=== PATIENT | male | born 1990 | race Two or more races ===

== ENCOUNTER 2024-08-16 10:18 | Emergency (ER) | payer SELFPAY ==
[2024-08-16 10:49] VITALS: BP 111/74; PULSE 64; RESP 18; TEMP 36.3; O2SAT 100; BMI 34.6
--- NOTE | 2024-08-16 11:08 | XR_ITS ---
Examination: PA lateral chest 2 views Technique: Upright PA lateral chest 2 views Exam date and time: August 16, 2024 1111 hrs. Indications: Shortness of breath chest pain beginning today. Findings: Mild prominence left ventricle No pneumonia or pulmonary edema There is mild prominence of the central pulmonary vasculature Impression: Mild prominent central pulmonary vasculature
--- NOTE | 2024-08-16 11:09 | PD.EDRME ---
Rapid Medical Screening Exam [facility] Arrival date/time: 08/16/24 10:18 33-year-old male with a history of childhood asthma reports with complaints of sudden onset of shortness of breath and chest pain on inspiration for 1 day Chief Complaint: Chest Pain Time Seen by Provider: 08/16/24 10:42 Vital signs: Vital Signs Temperature 97.4 F 08/16/24 10:49 Pulse Rate 64 08/16/24 10:49 Respiratory Rate 18 08/16/24 10:49 Blood Pressure 111/74 08/16/24 10:49 Pulse Oximetry (%) 100 08/16/24 10:49 Oxygen Delivery Method Room Air 08/16/24 10:49
[2024-08-16 11:27] VITALS: PULSE 63; RESP 18; O2SAT 99
[2024-08-16] MEDS: ALBUTEROL/IPRATROPIUM (Duoneb) RT SOL 3 ML NEBU INH (11:27)
--- NOTE | 2024-08-16 12:33 | PD.EDCHEST ---
ED Chest Pain RME/HPI General Chief Complaint: Chest Pain Stated Complaint: CHEST PAIN WITH COUGH Time Seen by Provider: 08/16/24 10:42 Arrival date/time: 08/16/24 10:18 33-year-old male with a previous history of childhood asthma reports with complaints of shortness of breath and chest pain that began earlier today. Patient reports the pain is with inhalation and coughing only. Patient states that he has had some sort of virus over the last few days but has not been taking any medications. He denies nausea or vomiting headaches or dizziness fevers or chills. Patient states that he has felt warm and has been a little diaphoretic over the last 2 days. Patient states that he has not had an asthma attack IN more than 15 years Limitations: no limitations Related Data Previous Rx's ?Medication ?Instructions ?Recorded albuterol sulfate 90 mcg/actuation 2 inh inhalation Q4H PRN shortness 08/16/24 aerosol inhaler of breath or wheezing #8.5 grams prednisone 20 mg tablet 60 mg PO QDAY 4 days #12 tabs 08/16/24 Allergies Allergy/AdvReac Type Severity Reaction Status Date / Time No Known Allergies Allergy Verified 08/16/24 10:19 Review of Systems Constitutional Constitutional: Denies chills and Denies fever(s) ENT Ears, Nose, Mouth, and Throat: Denies dizziness, Denies tongue swelling and Denies vertigo Cardiovascular Cardiovascular: Reports dyspnea and Denies irregular heart rhythm Respiratory Respiratory: Reports dyspnea, Reports pain on inspiration and Reports pain with cough Gastrointestinal Gastrointestinal: Denies nausea and Denies vomiting Musculoskeletal Musculoskeletal: Denies back pain and Denies deformity Neurologic Neurologic: Denies dizziness and Denies vertigo Hematologic/Lymphatic Hematologic/Lymphatic: Denies easy bleeding and Denies easy bruising Allergic/Immunologic Allergic/Immunologic: Denies tongue swelling Past Medical History Social History SMOKING STATUS: Never smoker ED Exam General Limitations: Present no limitations General appearance: Present alert and in no apparent distress Head Head exam: Present atraumatic Eye Eye exam: Present normal appearance, PERRL and EOMI ENT ENT exam: Present normal exam, normal oropharynx and mucous membranes moist Neck Neck exam: Present normal inspection, full ROM and trachea midline Chest Chest inspection: Present normal inspection and symmetric chest wall rise Respiratory Respiratory exam: Present normal lung sounds bilaterally; Absent respiratory distress or wheezes Cardiovascular Cardiovascular exam: Present regular rate, normal rhythm and normal heart sounds Abdominal Exam Abdominal exam: Present soft and normal bowel sounds Extremities Exam Extremities exam: Present normal inspection and full ROM Back Exam Back exam: Present normal inspection and full ROM Neurological Exam Neurological exam: Present alert, oriented X3 and CN II-XII intact Psychiatric Psychiatric exam: Present normal affect and normal mood Skin Skin exam: Present warm, intact, normal color and diaphoresis (MILD) Course Course Course Narrative: 33-year-old male who reports history of childhood asthma reports with complaints of shortness of breath cough and congestion. Chest x-ray is without infiltrates or opacities flu and COVID test are negative EKG with normal sinus rhythm no STEMI or ischemic changes are noted. Patient was given a DuoNeb reassessment the patient he states that he is feeling better he is able to take deep breaths and the chest pain has somewhat resolved. Patient is also no longer diaphoretic. Differential diagnosis includes asthma exacerbation versus COVID versus influenza versus other viral infections. Patient is currently stable nontoxic-appearing with stable vital signs he will be discharged home treated for asthma and advised to follow-up with his primary care provider in 48 hours. Quality Measures none Orders Category Date Time Status Bedside COVID-19 Antigen Test NOW Care 08/16/24 11:52 Active Bedside Influenza A&B Antigen Test NOW Care 08/16/24 11:53 Completed EKG (ED ONLY) *Do not use* NOW Care 08/16/24 11:52 Active EKG (ED Only) Stat Exams 08/16/24 11:52 Ordered XR chest 2V Stat Exams 08/16/24 11:08 Taken Albuterol/Ipratr Rt Dipika [Duoneb Rt Dipika] Med 08/16/24 11:08 Discontinued 3 ml INH X1 ONE Vital Signs Vital signs: Vital Signs Temperature 97.4 F 08/16/24 10:49 Pulse Rate 64 08/16/24 10:49 Respiratory Rate 18 08/16/24 10:49 Blood Pressure 111/74 08/16/24 10:49 Pulse Oximetry (%) 100 08/16/24 10:49 Oxygen Delivery Method Room Air 08/16/24 10:49 Procedures -ED EKG Interpretation #1: EKG Impression: Normal sinus rhythm, No acute ST-T changes and No ischemic changes Chest Pain Patient data External records reviewed:: None Clinical information provided by:: patient Social determinants that could affect healthcare access:: none Patient has the following chronic illnesses:: none How is presenting disease/condition affected by chronic disease/condition?: no chronic disease Evaluation data The following diagnostics were reviewed and interpreted by me:: lab results and radiology exam(s) Lab and/or radiology exams considered but not ordered:: N/A Interpretation Summary: Negative for COVID and flu, chest x-ray negative for evidence of pneumonia Medications / Prescriptions Medications or Prescriptions considered but not ordered:: n/a Medication administrations:: Medication Administration History Discontinued Medications Albuterol/Ipratropium (Albuterol/Ipratropium (Duoneb) Rt Dipika 3 Ml Nebu) 3 ml INH X1 ONE Stop: 08/16/24 11:09 Last Admin: 08/16/24 11:27 Dose: 3 ml Documented By: MURIEL as above Consultations Consultation(s) initiated? (list below): No Diagnosis Most likely diagnosis given after review of the tests above:: Lower respiratory infection Admission Indicated Admission indicated?: not indicated Admission Request Was there a request for admission?: No Disposition Plan Disposition Plan: Discharge Discharge Attestation Discharge Attestation: The patient and all family members were given an opportunity to ask questions and understood the discharge instructions. Discharge instructions specifically effects, indications for sooner follow up or return to the emergency department, and the expected course of current diagnosis. Patient condition: Stable Discharge Plan Plan Patient Disposition: HOME (Self Care) Prescriptions/Referrals Prescriptions/Med Rec: New prednisone 20 mg tablet 60 mg PO QDAY 4 Days Qty: 12 0RF Taper: Prednisone Taper 20 mg DAILY for 2 Days and 0 Hour 10 mg DAILY for 2 Days and 0 Hour 5 mg DAILY for 7 Days and 0 Hour albuterol sulfate 90 mcg/actuation HFA aerosol inhaler 2 inh inhalation Q4H PRN (Reason: shortness of breath or wheezing) Qty: 8.5 0RF Rx Instructions: until breathing returns to target peak flow/parameters Referrals: No Primary/Family,Physician [Primary Care Provider] - In 1 week Problem List Clinical Impression: Lower respiratory tract infection Patient/Caregiver Discharge Instructions Discharge Activity: activity as tolerated Additional Instructions: Take medications as directed hydrate well follow with your primary care provider in 48 hours. Return to emergency department if symptoms should worsen Print Language: Maldivian Stand Alone Forms: Joyce Award Info., Patient Portal Info Letter
[2024-08-16 12:50] VITALS: BP 119/81; PULSE 71; RESP 18; TEMP 36.8; O2SAT 98
== END 2024-08-16 12:50 | disposition home or self-care (01) ==
PROVIDERS: Emergency Provider Emergency Medicine
DX: J22 Unspecified acute lower respiratory infection (principal)
CPT/HCPCS: 71046; 87400; 87811; 93005; 94640; 99283; A9270

== ENCOUNTER 2025-08-20 20:13 | Inpatient (IN) | payer MEDICAID, SELFPAY ==
[2025-08-20] VITALS (8 sets, daily range): BP systolic 128–155; BP diastolic 84–104; PULSE 97–120; RESP 16–30; TEMP 35.9–36.4; O2SAT 100
--- NOTE | 2025-08-20 20:15 | PD.EDSOB ---
ED SOB =RME/HPI General Chief Complaint: Shortness of Breath/Dyspnea Stated Complaint: SOB Time Seen by Provider: 08/20/25 20:19 Arrival date/time: 08/20/25 20:13 RME / HPI RME / HPI Narrative: See MDM for Dr. Carter's HPI Documentation. Related Data Previous Rx's ?Medication ?Instructions ?Recorded albuterol sulfate 90 mcg/actuation 2 inh inhalation Q4H PRN shortness 08/16/24 aerosol inhaler of breath or wheezing #8.5 grams Allergies Allergy/AdvReac Type Severity Reaction Status Date / Time No Known Allergies Allergy Verified 08/16/24 10:19 Review of Systems Review of Systems Systems Reviewed: All systems reviewed, normal except as documented Past Medical History Past Medical History CARDIAC: Positive Congestive Heart Failure Social History SMOKING STATUS: Never smoker ED Exam Narrative Physical exam: See [facility] for Dr. Carter's Physical Exam Documentation. Course Quality Measures none Orders Category Date Time Status Admit to Inpatient Status Routine Admission 08/21/25 04:48 Active Patient Condition Routine Admission 08/21/25 04:48 Ordered Bedside COVID-19 Antigen Test NOW Care 08/20/25 20:18 Active Bedside Influenza A&B Antigen Test NOW Care 08/20/25 20:18 Completed COVID-19 Screening Questionnaire NOW Care 08/21/25 01:[address] Screening NOW Care 08/20/25 21:22 Active EKG (ED ONLY) *Do not use* NOW Care 08/20/25 20:18 Completed NPO NOW Care 08/21/25 04:49 Active Notify provider NEEDED Care 08/21/25 04:48 Active Saline [Insert IV] NOW Care 08/20/25 20:18 Active Referral Respiratory Therapy Stat Cons 08/20/25 20:[address] abdomen pelvis w con Stat Exams 08/21/25 01:[address] angio chest Stat Exams 08/20/25 21:22 Completed EKG (ED Only) Stat Exams 08/20/25 20:18 Ordered US gall bladder Stat Exams 08/21/25 01:22 Completed US thoracentesis Stat Exams 08/21/25 04:47 Ordered US venous doppler LE BI Stat Exams 08/21/25 01:22 Completed XR chest 1V portable Stat Exams 08/20/25 20:18 Completed ABG [Arterial Blood Gas] Stat Lab 08/20/25 20:24 Completed Alcohol, Blood Medical Stat Lab 08/20/25 20:23 Completed BNP [B-Type Natriuretic Peptide] Stat Lab 08/20/25 20:23 Completed Bilirubin,Direct Stat Lab 08/20/25 20:23 Completed Blood Culture (Lab) Stat Lab 08/20/25 20:23 Results Body Fld Cult w Sarah & Gram St Routine Lab 08/21/25 04:53 Ordered CBC AM DRAW Lab 08/21/25 05:06 Completed CBC AM DRAW Lab 08/22/25 05:00 Ordered CBC AM DRAW Lab 08/23/25 05:00 Ordered CBC Stat Lab 08/20/25 20:23 Completed CK [Creatine Kinase] Stat Lab 08/20/25 20:23 Completed CMP [Comprehensive Metabolic Panel] Stat Lab 08/20/25 20:23 Completed CRP [C-Reactive Protein] Stat Lab 08/20/25 20:23 Completed Comprehensive Metabolic Panel AM DRAW Lab 08/21/25 05:06 Completed Comprehensive Metabolic Panel AM DRAW Lab 08/22/25 05:00 Ordered Comprehensive Metabolic Panel AM DRAW Lab 08/23/25 05:00 Ordered D-Dimer Stat Lab 08/20/25 20:23 Completed Drug Screen,Urine Stat Lab 08/20/25 22:00 Completed ESR [Sed Rate (ESR)] Stat Lab 08/20/25 20:23 Completed Hemoglobin A1C [Glycohemoglobin w (eAG)] Stat Lab 08/20/25 20:23 Completed Lactate (Lactic Acid) Stat Lab 08/20/25 20:23 Completed Lactic Acid, 3 HR Stat Lab 08/20/25 23:52 Completed Lipase Stat Lab 08/20/25 20:23 Completed Magnesium AM DRAW Lab 08/21/25 05:06 Completed Magnesium Stat Lab 08/20/25 20:23 Completed Partial Thromboplastin Time Routine Lab 08/22/25 05:00 Ordered Pleural Fld Cell Count Diff Routine Lab 08/21/25 04:53 Ordered Procalcitonin Stat Lab 08/20/25 20:23 Completed Protein Total,Pleural Fluid Routine Lab 08/21/25 04:53 Ordered Prothrombin Time with INR AM DRAW Lab 08/21/25 05:06 Completed Sputum Culture and Gram Stain Routine Lab 08/21/25 04:51 Ordered TSH [Thyroid Stimulating Hormone] Stat Lab 08/20/25 20:23 Completed Troponin I Stat Lab 08/20/25 20:23 Completed UA, C/S IF [Urinalysis, C/S if Indicated] Stat Lab 08/20/25 22:00 Completed Acetaminophen Tab [Tylenol Tab] Med 08/21/25 04:47 Active 650 mg PO Q6H PRN DiphenhydrAMINE INJ [Benadryl Inj] Med 08/20/25 23:43 Discontinued 50 mg .ROUTE .STK-MED ONE DiphenhydrAMINE INJ [Benadryl Inj] Med 08/21/25 01:25 Discontinued 50 mg IVP X1 ONE DiphenhydrAMINE INJ [Benadryl Inj] Med 08/20/25 23:42 Discontinued 50 mg IVP X1 STA DiphenhydrAMINE INJ [Benadryl Inj] Med 08/21/25 02:31 Discontinued 50 mg IVP X1 STA Enoxaparin [Lovenox] Med 08/21/25 09:00 Active 40 mg SC QDAY Furosemide Inj [Lasix Inj] Med 08/20/25 20:15 Discontinued 80 mg IVP X1 ONE Haloperidol Lactate [Haldol Inj] Med 08/21/25 03:58 Discontinued 5 mg IV X1 ONE LORazepam [Ativan Inj] Med 08/20/25 23:23 Discontinued 1 mg IVP X1 ONE LORazepam [Ativan Inj] Med 08/21/25 02:17 Discontinued 2 mg IVP X1 ONE MethylPREDNISolone.* [SoluMEDROL Inj] Med 08/20/25 23:43 Discontinued 125 mg .ROUTE .STK-MED ONE MethylPREDNISolone.* [SoluMEDROL Inj] Med 08/20/25 23:42 Discontinued 125 mg IVP X1 ONE MethylPREDNISolone.* [SoluMEDROL Inj] Med 08/21/25 01:25 Discontinued 125 mg IVP X1 ONE MethylPREDNISolone.* [SoluMEDROL Inj] Med 08/21/25 02:31 Discontinued 125 mg IVP X1 ONE Metoprolol Tartrate [Lopressor] Med 08/20/25 20:18 Discontinued 50 mg PO X1 ONE Milk Of Magnesia Susp [Mom Susp] Med 08/21/25 04:47 Active 30 ml PO QDAY PRN Morphine* Inj Med 08/21/25 04:47 Active 2 mg IVP Q2H PRN Morphine* Inj Med 08/20/25 20:15 Discontinued 4 mg IV X1 ONE Ondansetron Inj [Zofran Inj] Med 08/21/25 04:47 Active 4 mg IVP Q6H PRN Pantoprazole Inj [Protonix Inj] Med 08/21/25 09:00 Active 40 mg IVP QDAY Sodium Chloride Rt Dipika 10% [NS Rt Dipika 10%] Med 08/21/25 04:47 Discontinued 5 ml INH X1 ONE Code Status Routine Oth 08/21/25 04:47 Ordered BiPAP / CPAP NOW RT 08/20/25 20:15 Active Oxygen Delivery PRN RT 08/21/25 04:49 Active Sputum Induction PRN RT 08/21/25 05:00 Ordered Vital Signs Vital signs: Vital Signs Temperature 96.7 F L 08/20/25 20:20 Pulse Rate 100 08/20/25 20:20 Respiratory Rate 16 08/20/25 20:20 Blood Pressure 155/104 H 08/20/25 20:20 Pulse Oximetry (%) 100 08/20/25 20:20 Oxygen Delivery Method BiPAP 08/20/25 20:20 Shortness of Breath / Dyspnea MDM Narrative MDM Narrative:: This section includes all my notes and documentations, including HPI, PE, and ED course. Del Carter MD HPI: 34 y/o male here with severe shortness of breath. EMS noted hypoxia. He has trouble describing the onset and exacerbating factors or relieving factors and other details. Reports she was discharged from a week earlier this morning. Was admitted for CHF. No other complaints. ROS: All negative except as documented in HPI. Physical Exam: General: Alert and oriented. In severe respiratory distress. Hypoxia noted. High BP noted. Eyes: Conjunctivae and lids clear. ENT: No nasal congestion. Pharynx normal. TM normal bilaterally. Neck: Supple. Heart: Tachycardia with regular rhythm. Lungs: In respiratory distress. Decreased air movement with severe Rales bilaterally. Abdomen: Soft with equivocal tenderness, difficult to localize.. Normal bowel sounds. No distension. No rebound or guarding. Back: No CVA tenderness. Skin: Warm and dry. Neuro: Alert and oriented X 3. I reviewed EMS notes. I reviewed all diagnostic test results: My interpretation of the EKG is: Sinus tachycardia (109 bpm) with nonspecific ST-T changes. My interpretation of the chest x-ray is increased vascular congestion. My review of the Chest CTA report is pulmonary edema and bilateral pleural effusion. My review of the Abdomen/Pelvis CT report is cirrhosis and ascites and anasarca. My review of the bilateral leg venous Doppler US report is no DVT. My review of the gallbladder US report is NAD. Blood/urine tests remarkable for ESR 64, D-dimer 2228, lactic acid 3.4, and BNP 1509. ABG showed pH 7.46, pCO2 41, pHCO3 29. Covid/Influenza: Negative At this point, diagnoses include: Acute respiratory failure with hypoxia Pulmonary edema Bilateral pleural effusion Cirrhosis Ascites Anasarca Treatment here included: BiPAP (before diagnostic tests) Lasix 80 mg IV Lopressor 50 mg PO Morphine 4 mg IV Benadryl 50 mg IV Ativan 1 mg IV and 2 mg IV SoluMedrol 125 mg Haldol 5 mg IV (for severe agitation) No significant improvement noted. I discussed the case with our hospitalist. About the presentation and exam and diagnostics and treatments here. And need of further care in the hospital. Will accept the patient. Dle Carter MD Patient data External records reviewed:: [facility] previous records (Reviewed prior ED records from 08/16/24. Patient was seen for Lower respiratory tract infection.) and EMS form Clinical information provided by:: patient and EMS Social determinants that could affect healthcare access:: none Patient has the following chronic illnesses:: CHF How is presenting disease/condition affected by chronic disease/condition?: exacerbated by Evaluation data The following diagnostics were reviewed and interpreted by me:: EKG tracing(s) (My interpretation of the EKG is: Sinus tachycardia (109 bpm) with nonspecific ST-T changes. Del Carter MD) Lab and/or radiology exams considered but not ordered:: None Interpretation Summary: I reviewed all diagnostic test results: My interpretation of the EKG is: Sinus tachycardia (109 bpm) with nonspecific ST-T changes. My interpretation of the chest x-ray is increased vascular congestion. My review of the Chest CTA report is pulmonary edema and bilateral pleural effusion. My review of the Abdomen/Pelvis CT report is cirrhosis and ascites and anasarca. My review of the bilateral leg venous Doppler US report is no DVT. My review of the gallbladder US report is NAD. Blood/urine tests remarkable for ESR 64, D-dimer 2228, lactic acid 3.4, and BNP 1509. ABG showed pH 7.46, pCO2 41, pHCO3 29. Covid/Influenza: Negative. Medications / Prescriptions Medications or Prescriptions considered but not ordered:: None Medication administrations:: Medication Administration History Acetaminophen (Acetaminophen 325 Mg Tablet) 650 mg PO Q6H PRN PRN Reason: Fever >101.5 Stop: 09/20/25 04:46 Diazepam (Diazepam Inj 5 Mg/Ml Vial 2 Ml) 5 mg IVP X1 PRN PRN Reason: Breakthrough Agitation Enoxaparin Sodium (Enoxaparin Sod Inj 40 Mg/0.4 Ml Syringe) 40 mg SC QDAY [facility] Stop: 09/04/25 08:59 Last Admin: 08/21/25 11:04 Dose: 40 mg Documented By: KENYA Furosemide (Furosemide Inj 10 Mg/Ml Vial 2 Ml) 40 mg IVP BIDD [facility] Stop: 09/20/25 05:59 Last Admin: 08/21/25 18:24 Dose: 40 mg Documented By: Admin: 08/21/25 05:49 Dose: 40 mg Documented By: VAMSHI Lorazepam (Lorazepam 0.5 Mg Tablet) 0.5 mg PO Q4HR PRN PRN Reason: CIWA Score 2-6 Stop: 08/26/25 07:19 Lorazepam (Lorazepam 0.5 Mg Tablet) 1 mg PO Q4HR PRN PRN Reason: CIWA SCORE 7-11 Stop: 08/26/25 07:19 Lorazepam (Lorazepam 0.5 Mg Tablet) 2 mg PO Q4HR PRN PRN Reason: CIWA SCORE 12-15 Stop: 08/26/25 07:19 Magnesium Hydroxide (Milk Of Magnesia Susp 30 Ml Udc) 30 ml PO QDAY PRN; Protocol PRN Reason: CONSTIPATION Stop: 09/20/25 04:46 Morphine Sulfate (Morphine Sulf Inj 4 Mg/Ml Vial) 2 mg IVP Q2H PRN PRN Reason: PAIN SCALE 7-10 (Severe Stop: 08/26/25 04:46 Ondansetron HCl (Ondansetron Inj 2 Mg/Ml Inj 2 Ml) 4 mg IVP Q6H PRN; Protocol PRN Reason: NAUSEA OR VOMITING Stop: 09/20/25 04:46 Pantoprazole Sodium (Pantoprazole Inj 40 Mg Vial) 40 mg IVP QDAY GISSEL Stop: 09/20/25 08:59 Last Admin: 08/21/25 11:03 Dose: 40 mg Documented By: KENYA Discontinued Medications Diphenhydramine HCl (Diphenhydramine Inj 50 Mg/Ml Vial) 50 mg IVP X1 STA Stop: 08/20/25 23:43 Last Admin: 08/21/25 00:03 Dose: Not Given Documented By: VAMSHI Non-Admin Reason: Patient Refused Diphenhydramine HCl (Diphenhydramine Inj 50 Mg/Ml Vial) Confirm Administered Dose 50 mg .ROUTE .STK-MED ONE Stop: 08/20/25 23:44 Last Admin: 08/21/25 00:03 Dose: Not Given Documented By: VAMSHI Non-Admin Reason: Patient Refused Diphenhydramine HCl (Diphenhydramine Inj 50 Mg/Ml Vial) 50 mg IVP X1 ONE Stop: 08/21/25 01:26 Last Admin: 08/21/25 01:32 Dose: 50 mg Documented By: VAMSHI Diphenhydramine HCl (Diphenhydramine Inj 50 Mg/Ml Vial) 50 mg IVP X1 STA Stop: 08/21/25 02:32 Last Admin: 08/21/25 02:37 Dose: 50 mg Documented By: VAMSHI Furosemide (Furosemide Inj 10 Mg/Ml 4ml Vial) 80 mg IVP X1 ONE Stop: 08/20/25 20:16 Last Admin: 08/20/25 20:30 Dose: 80 mg Documented By: VAMSHI Haloperidol Lactate (Haloperidol Lact Inj 5 Mg/Ml Vial) 5 mg IV X1 ONE Stop: 08/21/25 03:59 Last Admin: 08/21/25 04:04 Dose: 5 mg Documented By: GARFIELD Lorazepam (Lorazepam 2 Mg/Ml Vial) 1 mg IVP X1 ONE Stop: 08/20/25 23:24 Last Admin: 08/20/25 23:51 Dose: 1 mg Documented By: VAMSHI Lorazepam (Lorazepam 2 Mg/Ml Vial) 2 mg IVP X1 ONE Stop: 08/21/25 02:18 Last Admin: 08/21/25 02:27 Dose: 2 mg Documented By: VAMSHI Methylprednisolone Sodium Succinate (Methylprednisolone Sod Succ 62.5 Mg/Ml 2ml Vial) 125 mg IVP X1 ONE Stop: 08/20/25 23:43 Last Admin: 08/21/25 00:03 Dose: Not Given Documented By: VAMSHI Non-Admin Reason: Patient Refused Methylprednisolone Sodium Succinate (Methylprednisolone Sod Succ 62.5 Mg/Ml 2ml Vial) Confirm Administered Dose 125 mg .ROUTE .STK-MED ONE Stop: 08/20/25 23:44 Last Admin: 08/21/25 00:02 Dose: Not Given Documented By: VAMSHI Non-Admin Reason: Patient Refused Methylprednisolone Sodium Succinate (Methylprednisolone Sod Succ 62.5 Mg/Ml 2ml Vial) 125 mg IVP X1 ONE Stop: 08/21/25 01:26 Last Admin: 08/21/25 01:33 Dose: 125 mg Documented By: VAMSHI Methylprednisolone Sodium Succinate (Methylprednisolone Sod Succ 62.5 Mg/Ml 2ml Vial) 125 mg IVP X1 ONE Stop: 08/21/25 02:32 Last Admin: 08/21/25 02:37 Dose: 125 mg Documented By: VAMSHI Metoprolol Tartrate (Metoprolol Tartrate 25 Mg Tablet) 50 mg PO X1 ONE Stop: 08/20/25 20:19 Last Admin: 08/20/25 20:33 Dose: 50 mg Documented By: VAMSHI Morphine Sulfate (Morphine Sulf Inj 4 Mg/Ml Vial) 4 mg IV X1 ONE Stop: 08/20/25 20:16 Last Admin: 08/20/25 20:31 Dose: 4 mg Documented By: VAMSHI Sodium Chloride (Sodium Chloride Rt 10% 15 Ml Nebu) 5 ml INH X1 ONE Stop: 08/21/25 04:48 Last Admin: 08/21/25 10:59 Dose: Not Given Documented By: KENYA Non-Admin Reason: Wrong Time Spironolactone (Spironolactone 25 Mg Tablet) 100 mg PO X1 ONE Stop: 08/21/25 05:22 Last Admin: 08/21/25 06:29 Dose: 100 mg Documented By: VAMSHI Thiamine HCl (Thiamine Inj 100 Mg/Ml Vial 2 Ml) 500 mg IVP X1 ONE Stop: 08/21/25 07:21 Last Admin: 08/21/25 08:10 Dose: 500 mg Documented By: KENYA Treatment here FROM [place] included: BiPAP (before diagnostic tests) Lasix 80 mg IV Lopressor 50 mg PO Morphine 4 mg IV Benadryl 50 mg IV Ativan 1 mg IV and 2 mg IV SoluMedrol 125 mg Haldol 5 mg IV (for severe agitation) Consultations Consultation(s) initiated? (list below): Yes Consultation #1 (Physician, Specialty, Details): I discussed the case with our hospitalist. About the presentation and exam and diagnostics and treatments here. And need of further care in the hospital. Will accept the patient. Time: 01:10 Diagnosis Shortness of Breath Differential Diagnosis: acute exacerbation of chronic obstructive airways disease, congestive heart failure, community acquired pneumonia, asthma with exacerbation and pulmonary embolism Most likely diagnosis given after review of the tests above:: Acute respiratory failure with hypoxia Pulmonary edema Bilateral pleural effusion Cirrhosis Ascites Anasarca Admission Indicated Admission indicated?: indicated Explain why admission is indicated or not indicated:: Acute respiratory failure with hypoxia Pulmonary edema Bilateral pleural effusion Cirrhosis Ascites Anasarca Admission Request Was there a request for admission?: Yes Admission Attestation Admission request attestation: Discussed case with Hospitalist service regarding admission. Discussed patients ED course, exam findings, labs, and radiology results. Agreed to accept the patient for admission. Disposition Plan Disposition Plan: Admit Critical Care Time Critical Care Time Critical Care Time: Yes Total Critical Care Time (min.): 62 Attestation: Due to a high probability of clinically significant, life threatening deterioration, the patient required my highest level of preparedness to intervene emergently and I personally spent this critical care time directly and personally managing the patient. This critical care time included obtaining a history; examining the patient; ordering and review of studies; arranging urgent treatment with development of a management plan; evaluation of patient's response to treatment; frequent reassessment; and discussions with family and other providers. It was exclusive of separately billable procedures and treating other patients and teaching time. Del Carter MD Discharge Plan Plan Patient Disposition: Admit Acute Care w/in Hospital Problem List Clinical Impression: Acute respiratory failure with hypoxia, Pulmonary edema, Bilateral pleural effusion, Cirrhosis, Ascites, Anasarca
--- NOTE | 2025-08-20 20:18 | XR_ITS ---
EXAMINATION: AP chest single view TECHNIQUE: AP portable upright chest single view Date and time: August 20, 2025, 2031 hours, comparison August 2024 INDICATIONS: Shortness of breath today. FINDINGS: Moderate CHF Moderate enlargement cardiac contour. CABG. Prominent vascular congestion and perihilar basilar edema and large bilateral pleural effusions IMPRESSION: Moderate CHF
[2025-08-20] MEDS: FUROSEMIDE INJ 10 MG/ML 4ML VIAL 80 MG IVP (20:30)
[2025-08-20] MEDS: MORPHINE SULF INJ 4 MG/ML VIAL IV (20:31)
[2025-08-20 20:33] LABS: Allen Test Not Performed; Base Excess 5 (-3-3); HCO3 29 mEq/L (20-26); Inspired Oxygen, FIO2 21 %; O2 Saturation 101 % (91-98); PCO2 41 mmHg (32.0-48.0); PO2 424 mmHg (83-108); Puncture Site Site Not Noted; pH, Arterial 7.46 (7.35-7.45)
[2025-08-20] MEDS: METOPROLOL TARTRATE 25 MG TABLET 50 MG PO (20:33)
[2025-08-20 20:38] LABS: Lactate (Lactic Acid) 3.4 mMol/L (0.4-2.0)
[2025-08-20 20:42] LABS: Sed Rate (ESR) 64 mm/hr (0-15)
[2025-08-20 20:43] LABS: Basophils # (Auto) 0.1 Thou/mm3 (0.0-0.2); Basophils % (Auto) 1 % (0-2.5); Eosinophils # (Auto) 0.0 Thou/mm3 (0.0-0.5); Eosinophils % (Auto) 0 % (0-10); Hematocrit 38.2 % (41.0-53.0); Hemoglobin 11.9 g/dL (13.5-16.0); Immature Granulocytes Auto 0.01 Thou/mm3 (0.00-0.00); Lymphocytes # (Auto) 0.7 Thou/mm3 (1.0-4.8); Lymphocytes % (Auto) 12 % (10-50); Mean Corpuscular HGB Conc 31.2 g/dl (31.0-37.0); Mean Corpuscular Hemoglobin 28.2 pg (25.0-35.0); Mean Corpuscular Volume 91 fL (80-100); Monocytes # (Auto) 0.7 Thou/mm3 (0.0-0.8); Monocytes % (Auto) 11 % (0-12); Neutrophils # (Auto) 4.5 Thou/mm3 (1.8-7.7); Neutrophils % (Auto) 75 % (37-80); Nucleated Red Blood Cell # 0.00 Thou/mm3 (0.00-0.00); Nucleated Red Blood Cell % 0 /100 WBC (0); Platelet Count 362 Thou/mm3 (140-440); RDW Standard Deviation 60.5 fL (35.1-43.9); Red Blood Count 4.22 Miln/mm3 (4.50-5.90); White Blood Count 6.0 Thou/mm3 (3.8-10.6)
[2025-08-20 21:10] LABS: D-Dimer 2220 ng/mL (<600)
--- NOTE | 2025-08-20 21:22 | XR_ITS ---
Examination: CTA chest with intravenous contrast 2-D reconstructions 3-D reconstructions, vascular Date and time of exam: August 21, 2025, 0129 hours INDICATIONS: Shortness of breath chest and abdominal pain today CTDI: vol (mGy) 79.48 DLP: (mGycm) 1020 Technique: Multiple axial sections of the thorax have been obtained. 3 mm slice thickness, from below the hemidiaphragms to above the apices of the lungs. Mediastinal and lung density settings have been obtained. 2-D sagittal and coronal reconstructions. 3-D angiographic renderings, 3-D volume renderings, 3D post processing, vascular maximum intensity projections obtained. Contrast administered is 100 cc Isovue-370. Intravenous Low dose protocols were performed. One or more of the following dose reduction techniques were used; automated exposure control, adjustment of the mA and/or KV according to patient size, use of iterative reconstruction technique. Findings: No thoracic aortic aneurysm dilatation or dissection Assessment of peripheral pulmonary artery branches is limited secondary to patient motion No emboli in the main pulmonary artery branches Enlarged cardiac contour with prominent vascular congestion Large right moderate left pleural fluid, the left pleural fluid appears loculated Atelectasis in the right lung Liver is irregular in contour Soft bilateral subcentimeter pulmonary nodules Severe osteopenia IMPRESSION: Mild heart failure Limited visualization of pulmonary arterial branches segmental, no filling defects in the main right and left pulmonary artery branches Large right pleural effusion Moderate left pleural effusion which appears loculated Soft bilateral pulmonary nodules, subcentimeter, with the studies baseline recommend 6-month follow-up CT chest without contrast Primary appendicitis disease versus cirrhosis, anasarca
[2025-08-20 21:23] LABS: Alanine Aminotransferase 15 U/L (10-49); Albumin, Serum 4.1 gm/dL (3.5-5.0); Albumin/Globulin Ratio 1.0 (1.2-2.2); Alcohol, Blood Medical < 3.0 mg/dL (0-10.0); Alkaline Phosphatase 185 U/L (46-116); Anion Gap 11 (7-16); Aspartate Amino Transferase 25 U/L (0-34); BUN/Creatinine Ratio 17 Ratio (12-20); Bilirubin,Direct 0.8 mg/dL (0.0-0.3); Bilirubin,Total 1.4 mg/dL (0.3-1.2); Blood Urea Nitrogen 19 mg/dL (9-23); Calcium 9.1 mg/dL (8.3-10.6); Calcium (Corrected) 9.1 mg/dL (8.5-10.1); Carbon Dioxide 27.3 mMol/L (20.0-31.0); Chloride 102 mMol/L (98-107); Creatine Kinase 55 U/L (34-171); Creatinine (Component) 1.1 mg/dL (0.6-1.3); Globulin 4.1 gm/dL (2.3-3.5); Glucose 166 mg/dL (74-106); Lipase 26 U/L (12-53); Magnesium 2.0 mg/dL (1.6-2.6); Osmolality,Calculated 285 (275-295); Potassium 4.4 mMol/L (3.4-5.1); Procalcitonin < 0.04 ng/ml (0.0-0.49); Sodium 140 mMol/L (136-145); Thyroid Stimulating Hormone 2.46 uIU/mL (0.55-4.78); Total Protein 8.2 gm/dL (5.7-8.2); Troponin I 0.032 ng/mL (0.0-0.045); eGFR > 60 See Note
[2025-08-20 21:43] LABS: B-Type Natriuretic Peptide 1509 pg/mL (0-100); C-Reactive Protein 2.0 mg/dL (0.0-0.9)
[2025-08-20 22:00] LABS: Glucose Estimated Average 166 mg/dL (80-131); Hemoglobin A1C 7.4 % Hgb (4.8-6.0)
[2025-08-20 22:07] LABS: Collection Type, Urine Clean Catch
[2025-08-20 22:10] LABS: Bilirubin,Urine Negative (Negative); Blood,Urine Negative (Negative); Clarity,Urine Clear (Clear/Hazy); Color,Urine Lt-Yellow (Lt Yel-Yel); Culture Indicated,Urine Not Indicated; Glucose, Urine Negative (Negative); Ketones,Urine Negative (Negative); Leukocyte Esterase,Urine Negative (Negative); Nitrite,Urine Negative (Negative); PH,Urine 7.0 (5.0-7.0); Protein,Urine Negative (Neg - Trace); RBC,Urine 1 /hpf (0-3); Specific Gravity,Urine 1.009 (1.001-1.035); Squamous Epithelial Cell,Urine < 1 /hpf (0-5); Urobilinogen,Urine Negative mg/dL (0.0-1.0); WBC,Urine 1 /hpf (0-5)
[2025-08-20 22:19] LABS: Amphetamine/Methamp Scrn,U Negative (Negative); Barbiturate Screen,Urine Negative (Negative); Benzodiazepines Screen,Urine Negative (Negative); Benzoylecgonine Screen, Ur Negative (Negative); Fentanyl Screen,Urine Negative (Negative); Opiate Screen,Urine Positive (Negative); THC Screen,Urine Negative (Negative)
[2025-08-20 23:33] LABS: Reflex Lactate? Y
[2025-08-20] MEDS: LORazepam 2 MG/ML VIAL 1 MG IVP (23:51)
[2025-08-21] VITALS (19 sets, daily range): BP systolic 116–149; BP diastolic 76–101; PULSE 92–115; RESP 16–21; TEMP 36–36.9; O2SAT 96–100
[2025-08-21 00:02] LABS: Lactic Acid, 3 HR 1.7 mMol/L (0.4-2.0)
--- NOTE | 2025-08-21 00:16 | PC.NURSE ---
pt is refusing ct scan @2346, RN educated pt on importance of scan but pt continued to deny. pt is A&O x4 gcs 15
--- NOTE | 2025-08-21 01:22 | XR_ITS ---
Examination: Abdomen sonogram, Limited Date and time of exam: August 21, 2025, 0248 hours INDICATIONS: Right upper abdominal tenderness onset today Technique: Real-time briceño scale transabdominal sonographic images of the upper abdomen obtained. Findings: Normal gallbladder Normal common bile duct 0.4 cm Pancreatic head 3.7 cm Liver 17.0 cm fatty infiltration Normal hepatopetal portal venous HyoMax hide patent IVC IMPRESSION: Normal gallbladder Pancreatic head measures prominent, clinical correlation advised Mild to moderate hepatomegaly
--- NOTE | 2025-08-21 01:22 | XR_ITS ---
Examination: CT abdomen with intravenous contrast CT pelvis with intravenous contrast 2-D coronal reconstructions 2-D sagittal reconstructions Date and time of exam: August 21, 2024, 0149 hours INDICATIONS: Onset abdominal pain today. CTDI: vol (mGy) 23 DLP: (mGycm) 1476 Technique: Multiple axial sections of the abdomen and pelvis have been obtained. 64 slice high-resolution scanner used. 3 mm axial sections have been obtained, post intravenous injection 60 cc Isovue-370 2-D sagittal, coronal reconstructions obtained. Low dose protocols were performed. One or more of the following dose reduction techniques were used; automated exposure control, adjustment of the mA and/or KV according to patient size, use of iterative reconstruction technique. Findings: Cirrhosis, liver irregular in contour Anasarca Spleen is not enlarged Pancreas is not enlarged Contracted gallbladder Multiple calcified para-aortic mesenteric lymph nodes No hydronephrosis Mild ascites No bowel obstruction No diverticulitis Urinary bladder is thickened No prostatomegaly Mild osteopenia IMPRESSION: Cirrhosis Anasarca Contracted gallbladder No hydronephrosis Mild ascites Cystitis pattern
--- NOTE | 2025-08-21 01:22 | XR_ITS ---
Examination: Venous duplex lower extremity sonogram, bilateral. Date and time of exam: August 21, 2025, 0243 hours INDICATIONS: Leg pain and swelling, elevated D-dimer today Technique: Multiple sonographic images of the deep venous system have been obtained. B-mode/2-D grayscale imaging of vascular structures and Doppler spectral analysis (waveforms) and color performed Both legs are examined. Findings: Deep venous systems do not demonstrate abnormal echogenicity. All visualized deep veins exhibit compressibility. All visualized deep veins exhibit augmentation. Impression: Negative for deep vein thrombosis
[2025-08-21] MEDS: MethylPREDNISolone SOD SUCC 62.5 MG/ML 2ML VIAL 125 MG IVP ×2 (01:33→02:37)
[2025-08-21] MEDS: LORazepam 2 MG/ML VIAL IVP (02:27)
--- NOTE | 2025-08-21 02:40 | PRELIM_ITS ---
CT angiogram of the chest with intravenous contrast (axial sections with sagittal and coronal reformats). August 21, 2025 at 0149 hours Clinical History: Shortness of breath. Technique:Helical axial sections with sagittal and coronal reformats of the chest were obtained with intravenous contrast. Iterative reconstruction technique was employed to reduce patient radiation exposure. 3D/MIP reconstructed images were also provided. Comparison: No prior study available for comparison at the time of interpretation. Findings: There is no evidence of acute pulmonary thromboembolism in the central pulmonary arteries. However, evaluation of the peripheral vessels is limited by respiratory motion artifacts and small peripheral emboli cannot be entirely excluded. There is mild cardiomegaly. The thoracic aorta is unremarkable without aneurysm. There is a small to moderate pericardial effusion. Mildly thickened distal esophagus is seen, which may be due to mild reflux esophagitis. There is a large right pleural effusion with atelectasis of the adjacent lung. There is a moderate loculated left pleural effusion with atelectasis of the adjacent lung. Small patchy areas of consolidation with interstitial septal thickening as well as ground-glass opacities are seen in the visualized lungs bilaterally. A few scattered lung nodules are seen, the largest measuring 7 mm in the anterior aspect of the right upper lobe (axial image 81/229). There is cirrhosis of the liver. Free fluid is seen in the visualized abdomen. The other upper abdominal viscera are unremarkable to the extent visualized. Mild degenerative changes are seen in the spine. Median sternotomy wires are identified. Impression: 1. No evidence of acute pulmonary thromboembolism in the central pulmonary arteries. However, evaluation of the peripheral vessels is limited by respiratory motion artifacts and small peripheral emboli cannot be entirely excluded. 2. Large right pleural effusion and a moderate loculated left pleural effusion with atelectasis of the adjacent lung. 3. Cardiomegaly with possible mild interstitial pulmonary edema. 4. Lung nodules as described. 5. Other findings as described above. Suggest correlation with clinical findings, comparison with prior studies and follow up accordingly. Report Electronically Signed By: Rogelio Hicks 08/21/2025 2:39:54 AM [EST]
[2025-08-21] MEDS: HALOPERIDOL LACT INJ 5 MG/ML VIAL IV (04:04)
--- NOTE | 2025-08-21 04:55 | PD.HHHP ---
Documentation for date of: 08/21/25 HPI - Hospitalist History of Present Illness History of Present Illness: SOB History of present illness: 34-year-old male patient with unknown past medical history who presented to the ED after he was found to be hypoxic and in respiratory distress. No history could be obtained from patient as he is difficult to arouse after being aggressively sedated as he was agitated on presentation to ED. Will attempt to obtain further history from [facility] as ED documentation notes that patient was just discharged from [facility] on day prior to admission. At ED patient was found to be hypertensive tachycardic, tachypneic and struggling while on nasal cannula for which patient was transition to BiPAP. Labs were noted for mild leukocytosis, anemia, D-dimer of 2220, lactic acid 3.4, T.bili 1.7 BNP 1500 imaging of chest revealed large bilateral pleural effusion and findings suggestive of primary appendicitis versus cirrhosis. Patient will be admitted for acute respiratory distress in setting of pleural effusion. Review of Systems Review of Systems ROS Unobtainable: unobtainable due to mental status Meds Home Medications and Allergies Allergies Allergy/AdvReac Type Severity Reaction Status Date / Time No Known Allergies Allergy Verified 08/16/24 10:19 Exam Vital Signs Temp Pulse Resp BP Pulse Ox O2 Del Method O2 Flow Rate 97.1 F 109 H 16 143/94 H 100 BiPAP 8 08/21/25 04:09 08/21/25 04:09 08/21/25 04:09 08/21/25 04:09 08/21/25 04:09 08/21/25 04:09 08/21/25 00:20 FiO2 100 08/21/25 02:13 Narrative General: Morbidly obese, somnelent, appears distress. HEENT: Normocephalic, atraumatic, anicteric, EOM intact, PERRLA, moist mucous membranes. Heart: RRR, no murmur or gallop, BLE edema ++ Lungs: Clear to auscultation with equal breath sounds bilaterally. Abdomen: Hypoactive bowel sounds, Distended, RUQ tenderness, no CVA tenderness Extremities: Sensation, circulation &motor function intact and equal in all extremities. Neurologic: Somnelent but awakes to verbal stimuli, oriented to name, place and date of , able to move all extremities, DTRs normal Skin: Warm, dry, no rashes or ecchymosis noted. Results - Hospitalist Labs Diagrams: 08/20/25 20:23 08/20/25 20:23 Labs: Short CBC 08/20/25 Range/Units 20:23 WBC 6.0 (3.8-10.6) Thou/mm3 Hgb 11.9 L (13.5-16.0) g/dL Hct 38.2 L (41.0-53.0) % Plt Count 362 (140-440) Thou/mm3 BMP 08/20/25 20:23 Sodium 140 Potassium 4.4 Chloride 102 Carbon Dioxide 27.3 BUN 19 Creatinine 1.1 Glucose 166 H Calcium 9.1 Cardiac Enzymes 08/20/25 Range/Units 20:23 Total Creatine Kinase 55 (34-171) U/L Troponin I 0.032 (0.0-0.045) ng/mL Liver Function 08/20/25 Range/Units 20:23 Total Bilirubin 1.4 H (0.3-1.2) mg/dL Direct Bilirubin 0.8 H (0.0-0.3) mg/dL AST 25 (0-34) U/L ALT 15 (10-49) U/L Alkaline Phosphatase 185 H (46-116) U/L Albumin 4.1 (3.5-5.0) gm/dL Urine 08/20/25 Range/Units 22:00 Urine Color Lt-Yellow (Lt Yel-Yel) Urine Clarity Clear (Clear/Hazy) Urine pH 7.0 (5.0-7.0) Ur Specific [place] 1.009 (1.001-1.035) Urine Protein Negative (Neg - Trace) Urine Glucose (UA) Negative (Negative) ABG Interpretation ABG results: 08/20/25 20:24 ABG pH 7.46 H ABG pCO2 41 ABG pO2 424 H ABG HCO3 29 H ABG O2 Saturation 101 H ABG Base Excess 5 H Assessment & Plan -Hospitalist Additional Assessment Additional Plan Additional Plan: 34-year-old male patient with unknown past medical history who presented to the ED after he was found to be hypoxic and in respiratory distress, patient admitted for acute respiratory distress in setting of pleural effusion #Acute hypoxic respiratory failure 2/2 #Bilateral pleural effusions Morning team to attempt contacting [facility] to obtain further records CXR: Moderate CHF. Head neck CTA: Large right pleural effusion, moderate loculated left pleural effusion, soft bilateral pulmonary nodules, cirrhosis, anasarca. CTAP: Cirrhosis, anasarca, gallbladder contraction, mild ascites, cystitis. Gallbladder ultrasound: Mild to moderate hepatomegaly. BLE venous US: Negative for DVT - Oxygen as needed - Fluid restriction and aggressive diuresis - Us guided thoracentesis - Pleural fluid studies - Echocardiogram - Cardiology consulted, recs appreciated #Ascities 2/2 #Cirrhosis Presents with fatigue and increased drowsiness along with SOB. Admission ammonia 13. Plan: - Diuresis as above - US guided paracentesis - Acute hepatitis panel - Ascites fluid study #DM a1c 7.4 Plan: - Glucose mildly elevated, will observe - Consider SSI if glucose persistently elevated DVT:: Lovenox QD Diet: N.p.o. CODE: FULL CODE Quality Measures Quality Measures VTE prophylaxis
[2025-08-21 05:18] LABS: Basophils # (Auto) 0.0 Thou/mm3 (0.0-0.2); Basophils % (Auto) 0 % (0-2.5); Eosinophils # (Auto) 0.0 Thou/mm3 (0.0-0.5); Eosinophils % (Auto) 0 % (0-10); Hematocrit 37.3 % (41.0-53.0); Hemoglobin 11.7 g/dL (13.5-16.0); Immature Granulocytes Auto 0.04 Thou/mm3 (0.00-0.00); Lymphocytes # (Auto) 0.3 Thou/mm3 (1.0-4.8); Lymphocytes % (Auto) 3 % (10-50); Mean Corpuscular HGB Conc 31.4 g/dl (31.0-37.0); Mean Corpuscular Hemoglobin 28.7 pg (25.0-35.0); Mean Corpuscular Volume 91 fL (80-100); Monocytes # (Auto) 0.4 Thou/mm3 (0.0-0.8); Monocytes % (Auto) 3 % (0-12); Neutrophils # (Auto) 10.8 Thou/mm3 (1.8-7.7); Neutrophils % (Auto) 94 % (37-80); Nucleated Red Blood Cell # 0.00 Thou/mm3 (0.00-0.00); Nucleated Red Blood Cell % 0 /100 WBC (0); Platelet Count 331 Thou/mm3 (140-440); RDW Standard Deviation 60.4 fL (35.1-43.9); Red Blood Count 4.08 Miln/mm3 (4.50-5.90); White Blood Count 11.6 Thou/mm3 (3.8-10.6)
[2025-08-21 05:38] LABS: INR 1.3 (0.9-1.3); Prothrombin Time 13.3 Seconds (9.0-12.2)
[2025-08-21 05:39] LABS: HIV (1&2) Antibody Rapid Non-Reactive
[2025-08-21 05:40] LABS: Alanine Aminotransferase 12 U/L (10-49); Albumin, Serum 3.7 gm/dL (3.5-5.0); Albumin/Globulin Ratio 1.0 (1.2-2.2); Alkaline Phosphatase 169 U/L (46-116); Anion Gap 11 (7-16); Aspartate Amino Transferase 18 U/L (0-34); BUN/Creatinine Ratio 19 Ratio (12-20); Bilirubin,Total 1.7 mg/dL (0.3-1.2); Blood Urea Nitrogen 21 mg/dL (9-23); Calcium 9.0 mg/dL (8.3-10.6); Calcium (Corrected) 9.2 mg/dL (8.5-10.1); Carbon Dioxide 28.3 mMol/L (20.0-31.0); Chloride 103 mMol/L (98-107); Creatinine (Component) 1.1 mg/dL (0.6-1.3); Globulin 3.8 gm/dL (2.3-3.5); Glucose 125 mg/dL (74-106); Magnesium 1.8 mg/dL (1.6-2.6); Osmolality,Calculated 287 (275-295); Potassium 4.2 mMol/L (3.4-5.1); Sodium 142 mMol/L (136-145); Total Protein 7.5 gm/dL (5.7-8.2); eGFR > 60 See Note
[2025-08-21] MEDS: FUROSEMIDE INJ 10 MG/ML VIAL 2 ML 40 MG IVP ×2 (05:49→18:24)
--- NOTE | 2025-08-21 06:07 | ECHO_ITS ---
Patient Info Name: Chema Godoy Age: 34 years : 1990 Gender: Male Wt: 113 kg BP: 127 / 96 mmHg HR: 112 bpm Exam Date: 08/22/2025 12:18 PM Admit Date: 08/21/2025 Site: [facility] Room Number: [id number] Patient Status: I Exam Type: CA echo doppler complete [employer] Security: Tita Quiroga Ordering Physician: Jesse Arellano Study Info Indications Pleural effusion/ BNP elevation - Primary Location: S2NX Left Ventricular Outflow Tract Name Value Normal LVOT 2D LVOT Diameter 1.8 cm LVOT Doppler LVOT Peak Velocity 74 cm/s LVOT Mean Gradient 1 mmHg LVOT VTI 12 cm LVOT VTI/AV VTI Ratio 0.9 LVOT Stroke Volume 31 ml Pulmonic Valve Name Value Normal PV Doppler PV Peak Velocity 71 cm/s PV Regurgitation Doppler [place] Peak End Diastolic Velocity 149 cm/s Mitral Valve Name Value Normal MV Doppler MV Mean Gradient 3 mmHg MV Decel [place] 1,864 cm/s2 MV PHT 15 ms MV Area (PHT) 14.3 cm2 4.0-5.0 MV Area (Cont Eq VTI) 1.1 cm2 MV Diastolic Function MV E Peak Velocity 99 cm/s MV A Peak Velocity 22 cm/s MV E/A 4.5 MV Annular TDI MV Lateral e' Velocity 9.7 cm/s MV E/e' (Lateral) 10.2 Tricuspid Valve Name Value Normal TV Regurgitation Doppler TR Peak Velocity 316 cm/s Estimated PAP/RSVP RA Pressure 8 mmHg <=5 PA Systolic Pressure 48 mmHg <36 RV Systolic Pressure 48 mmHg <36 Aortic Valve Name Value Normal AV 2D/MM AV Cusp Sep (MM) 1.7 cm AV Doppler AV Peak Velocity 100 cm/s AV Mean Gradient 2 mmHg AV VTI 13 cm AV Area (Cont Eq VTI) 2.3 cm2 >=3.0 AV Area (Cont Eq Selvin) 1.9 cm2 AV DI (Selvin) 0.74 AV Regurgitation 2D LVOT Area 2.5 cm2 AV Regurgitation Doppler AR Decel [place] 474 cm/s2 AR PHT 262 ms Ventricles Name Value Normal LV Dimensions 2D/MM IVS Diastolic Thickness (2D) 0.6 cm 0.6-1.0 LVID Diastole (2D) 5.8 cm 4.2-5.8 LVIW Diastolic Thickness (2D) 0.6 cm 0.6-1.0 LVID Systole (2D) 5.4 cm 2.5-4.0 LVOT Diameter 1.8 cm LV Mass (2D Cubed) 123.64 g 88.00-224.00 Relative Wall Thickness (2D) 0.21 <=0.42 IVS/LVIW Diastolic Thickness (2D) 1.00 0.00-1.50 LV Fractional Shortening/Ejection Fraction 2D/MM LV Fractional Shortening (2D) 7 % 25-43 LV EF (2D Teichholz) 15 % Atria Name Value Normal LA Dimensions LA Volume (4C A-L) 59 ml LA Volume (BP A-L) 66 ml Left Ventricle Left ventricular chamber dimension is severely enlarged. Left ventricular systolic function is severely reduced with visually estimated ejection fraction of 10-15%. There is normal geometry noted in the left ventricle. Left ventricular segmental wall motion is normal. There is grade III diastolic dysfunction in the left ventricle. Right Ventricle Right ventricular chamber dimension is mildly enlarged. Right ventricular systolic function is reduced. Left Atrium Left atrial chamber dimension is moderately enlarged. Right Atrium Right atrial chamber dimension is mildly enlarged. Aortic Valve The aortic valve is trileaflet. There is mild aortic valve sclerosis. There is no aortic valve stenosis with a peak velocity of 100 cm/s, mean gradient of 2 mmHg, and aortic valve area of 2.3 cm2. There is mild aortic valve regurgitation. Pulmonic Valve The pulmonic valve is normal. There is no pulmonic valve stenosis. There is mild pulmonic regurgitation. Mitral Valve The mitral valve has normal leaflets. There is no mitral valve stenosis. There is mild mitral valve regurgitation. Tricuspid Valve The tricuspid valve leaflets are normal. There is no tricuspid valve stenosis. There is mild to moderate tricuspid valve regurgitation. Pulmonary hypertension, estimated pulmonary arterial systolic pressure is 48 mmHg and systemic blood pressure of 127 mmHg in systole. Pericardium/Pleural The pericardium appears normal. There is small pericardial effusion with no tamponade. There is small pericardial effusion. Pleural effusion visualized. Inferior Vena Cava Dilated inferior vena cava with <50% collapse upon inspiration consistent with normal right atrial pressure, 8 mmHg. Aorta The aortic measurements are indexed to age and body surface area. The aortic root at the sinus of Valsalva is not well visualized. The prox ascending aorta is not well visualized. Summary 1. Left ventricle size is severely enlarged and systolic function is severely reduced. Estimated ejection fraction is 10-15%. There is grade III diastolic dysfunction. 2. Right ventricle chamber size is mildly enlarged and systolic function is reduced. Estimated RVSP is 48 mmHg. Moderate HTN. 3. There is mild aortic valve sclerosis with no stenosis and mild regurgitation. 4. There is mild mitral valve regurgitation. 5. There is mild to moderate tricuspid valve regurgitation. 6. mild pulmonic valve regurgitation. 7. The left atrium is moderately enlarged. The right atrium is mildly enlarged. 8. Dilated IVC with estimated RA pressure 8 mmHg. Report Signatures Finalized by Miley Razo on 08/22/2025 02:46 PM
[2025-08-21] MEDS: SPIRONOLACTONE 25 MG TABLET 100 MG PO (06:29)
--- NOTE | 2025-08-21 07:56 | PC.NURSE ---
Report received from pm nurse, patient lying in high infante's position, on bipap, resp. even and non labored at 18bpm, 02 sats 100% on bipap, skin is warm dry and pink, patient agitated upon waking him up, wants to sleep. Patient awaiting bed on floor, call light within reach.
--- NOTE | 2025-08-21 08:08 | PC.NURSE ---
Spoke with Dr. Rodriguez to verify dose of thiamine 500mg ivP X 1, per Dr. Rodriguez OK to give medication, giving prophylaxis dose, do to h/o ETOH ABUSE. Will give medication per md order.
[2025-08-21] MEDS: THIAMINE INJ 100 MG/ML VIAL 2 ML 500 MG IVP (08:10)
[2025-08-21] MEDS: ENOXAPARIN SOD INJ 40 MG/0.4 ML SYRINGE SC (11:04)
--- NOTE | 2025-08-21 11:39 | PC.NURSE ---
Patient removed bi pap mask, RT at bedside and will try to wean patient off of bipap, patient placed on 6/02 via nc by RT.
[2025-08-21 11:56] LABS: Ammonia 13 uMol/L (11-32)
[2025-08-21 13:14] LABS: Troponin I 0.034 ng/mL (0.0-0.045)
[2025-08-21 14:19] LABS: Procalcitonin 0.20 ng/ml (0.0-0.49)
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
--- NOTE | 2025-08-21 14:58 | PC.NURSE ---
Spoke with Dr. Michael Rojas, informed her IR not here for u/s guided paracentesis and thoracentisis, per Dr. Rojas states they are gonna wait until saturday for procedures.
--- NOTE | 2025-08-21 15:01 | PC.NURSE ---
per can't run cocci til tomorrow.
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
--- NOTE | 2025-08-21 17:36 | PC.RT ---
Pt unable to comly with sputum sample at this time.
--- NOTE | 2025-08-21 20:22 | PC.RT ---
educated pt on sputum culture, pt refusing pt stated not at this time, no distress noted alerted to place,
[2025-08-22] VITALS (14 sets, daily range): BP systolic 127–143; BP diastolic 92–106; PULSE 112–120; RESP 16–26; TEMP 36.1–36.7; O2SAT 96–100
[2025-08-22] MEDS: FUROSEMIDE INJ 10 MG/ML VIAL 2 ML 40 MG IVP ×2 (05:33→17:07)
[2025-08-22 05:59] LABS: Basophils # (Auto) 0.0 Thou/mm3 (0.0-0.2); Basophils % (Auto) 0 % (0-2.5); Eosinophils # (Auto) 0.0 Thou/mm3 (0.0-0.5); Eosinophils % (Auto) 0 % (0-10); Hematocrit 38.8 % (41.0-53.0); Hemoglobin 12.3 g/dL (13.5-16.0); Immature Granulocytes Auto 0.06 Thou/mm3 (0.00-0.00); Lymphocytes # (Auto) 0.5 Thou/mm3 (1.0-4.8); Lymphocytes % (Auto) 4 % (10-50); Mean Corpuscular HGB Conc 31.7 g/dl (31.0-37.0); Mean Corpuscular Hemoglobin 28.4 pg (25.0-35.0); Mean Corpuscular Volume 90 fL (80-100); Monocytes # (Auto) 0.7 Thou/mm3 (0.0-0.8); Monocytes % (Auto) 5 % (0-12); Neutrophils # (Auto) 11.8 Thou/mm3 (1.8-7.7); Neutrophils % (Auto) 90 % (37-80); Nucleated Red Blood Cell # 0.00 Thou/mm3 (0.00-0.00); Nucleated Red Blood Cell % 0 /100 WBC (0); Platelet Count 363 Thou/mm3 (140-440); RDW Standard Deviation 59.0 fL (35.1-43.9); Red Blood Count 4.33 Miln/mm3 (4.50-5.90); White Blood Count 13.1 Thou/mm3 (3.8-10.6)
[2025-08-22 06:13] LABS: Partial Thromboplastin Time 26.2 Seconds (22.0-36.0)
[2025-08-22 06:19] LABS: Alanine Aminotransferase 14 U/L (10-49); Albumin, Serum 4.1 gm/dL (3.5-5.0); Albumin/Globulin Ratio 1.0 (1.2-2.2); Alkaline Phosphatase 161 U/L (46-116); Anion Gap 12 (7-16); Aspartate Amino Transferase 15 U/L (0-34); BUN/Creatinine Ratio 26 Ratio (12-20); Bilirubin,Total 1.3 mg/dL (0.3-1.2); Blood Urea Nitrogen 26 mg/dL (9-23); Calcium 9.8 mg/dL (8.3-10.6); Calcium (Corrected) 9.8 mg/dL (8.5-10.1); Carbon Dioxide 27.7 mMol/L (20.0-31.0); Chloride 101 mMol/L (98-107); Creatinine (Component) 1.0 mg/dL (0.6-1.3); Globulin 4.2 gm/dL (2.3-3.5); Glucose 158 mg/dL (74-106); Osmolality,Calculated 288 (275-295); Potassium 4.3 mMol/L (3.4-5.1); Sodium 141 mMol/L (136-145); Total Protein 8.3 gm/dL (5.7-8.2); eGFR > 60 See Note
[2025-08-22 15:22] LABS: Cocci Serology, IgM Negative (Negative)
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
[2025-08-22] MEDS: SODIUM CHLORIDE RT 10% 15 ML NEBU INH (18:58)
[2025-08-23] VITALS (8 sets, daily range): BP systolic 119–157; BP diastolic 84–117; PULSE 107–121; RESP 17–20; TEMP 36.1–36.4; O2SAT 94–99
--- NOTE | 2025-08-23 | XR_ITS ---
EXAMINATION: AP chest single view TECHNIQUE: Portable sitting AP chest single view Date and time: August 23, 2025, 1327 hours, comparison August 20, 2025 INDICATIONS: Post thoracentesis FINDINGS: No pneumothorax post thoracentesis Heart failure with enlarged cardiac contour prominent vascular congestion, perihilar edema and/or pneumonia with bilateral pleural effusions IMPRESSION: No pneumothorax post thoracentesis
[2025-08-23] MEDS: FUROSEMIDE INJ 10 MG/ML VIAL 2 ML 40 MG IVP (05:29)
[2025-08-23 06:03] LABS: Basophils # (Auto) 0.0 Thou/mm3 (0.0-0.2); Basophils % (Auto) 0 % (0-2.5); Eosinophils # (Auto) 0.0 Thou/mm3 (0.0-0.5); Eosinophils % (Auto) 0 % (0-10); Hematocrit 38.1 % (41.0-53.0); Hemoglobin 11.8 g/dL (13.5-16.0); Immature Granulocytes Auto 0.04 Thou/mm3 (0.00-0.00); Lymphocytes # (Auto) 1.0 Thou/mm3 (1.0-4.8); Lymphocytes % (Auto) 9 % (10-50); Mean Corpuscular HGB Conc 31.0 g/dl (31.0-37.0); Mean Corpuscular Hemoglobin 28.0 pg (25.0-35.0); Mean Corpuscular Volume 91 fL (80-100); Monocytes # (Auto) 1.0 Thou/mm3 (0.0-0.8); Monocytes % (Auto) 9 % (0-12); Neutrophils # (Auto) 9.2 Thou/mm3 (1.8-7.7); Neutrophils % (Auto) 82 % (37-80); Nucleated Red Blood Cell # 0.00 Thou/mm3 (0.00-0.00); Nucleated Red Blood Cell % 0 /100 WBC (0); Platelet Count 318 Thou/mm3 (140-440); RDW Standard Deviation 59.8 fL (35.1-43.9); Red Blood Count 4.21 Miln/mm3 (4.50-5.90); White Blood Count 11.3 Thou/mm3 (3.8-10.6)
--- NOTE | 2025-08-23 07:00 | XR_ITS ---
Examination: Abdomen sonogram, Limited Date and time of exam: August 23, 2025, 1311 hours INDICATIONS: Cirrhosis, increasing in size abdominal distention this week Technique: Real-time briceño scale transabdominal sonographic images of the upper abdomen obtained. Findings: Minimal ascitic fluid IMPRESSION: Minimal muscle fluid
--- NOTE | 2025-08-23 07:00 | XR_ITS ---
EXAMINATION: Ultrasound-guided right thoracentesis Ultrasound right hemithorax Ultrasound left hemithorax Date and time: August 23, 2025, 1251 hours INDICATIONS: Shortness of breath this week, heart failure with bilateral pleural effusions on CT chest August 21, 2025 TECHNIQUE AND FINDINGS: High resolution ultrasound right and left hemithoraces, significant bilateral pleural effusions Informed consent provided. Timeout performed. Skin prepped over the right hemithorax and sterile drape applied, hand hygiene ultrasound sterile technique 1% lidocaine administered for local anesthesia Utilizing ultrasonographic guidance 5 [place] catheter placed percutaneously in the right pleural space 2125 cc fluid removed Estimated blood loss 0 cc IMPRESSION: Successful ultrasound-guided right thoracentesis, 2125 cc pleural fluid removed
[2025-08-23 07:04] LABS: Alanine Aminotransferase 12 U/L (10-49); Albumin, Serum 4.0 gm/dL (3.5-5.0); Albumin/Globulin Ratio 1.0 (1.2-2.2); Alkaline Phosphatase 160 U/L (46-116); Anion Gap 10 (7-16); Aspartate Amino Transferase < 8 U/L (0-34); BUN/Creatinine Ratio 29 Ratio (12-20); Bilirubin,Total 1.1 mg/dL (0.3-1.2); Blood Urea Nitrogen 26 mg/dL (9-23); Calcium 9.5 mg/dL (8.3-10.6); Calcium (Corrected) 9.5 mg/dL (8.5-10.1); Carbon Dioxide 28.0 mMol/L (20.0-31.0); Chloride 102 mMol/L (98-107); Creatinine (Component) 0.9 mg/dL (0.6-1.3); Globulin 3.9 gm/dL (2.3-3.5); Glucose 109 mg/dL (74-106); Magnesium 1.8 mg/dL (1.6-2.6); Osmolality,Calculated 285 (275-295); Phosphorous 4.2 mg/dL (2.4-5.1); Potassium 4.0 mMol/L (3.4-5.1); Sodium 140 mMol/L (136-145); Total Protein 7.9 gm/dL (5.7-8.2); eGFR > 60 See Note
[2025-08-23 08:17] LABS: LDH (Lactate Dehydrogenase) 231 U/L (120-246)
[2025-08-23] MEDS: SPIRONOLACTONE 25 MG TABLET 100 MG PO (08:23)
[2025-08-23 08:31] LABS: INR 1.2 (0.9-1.3); Partial Thromboplastin Time 26.2 Seconds (22.0-36.0); Prothrombin Time 13.0 Seconds (9.0-12.2)
--- NOTE | 2025-08-23 08:33 | PC.NURSE ---
while performing med pass informed pt only took 2 of his spironolactone pills out of the 4 pills he was supposed to receive.educated pt on importance of taking medication but still refused to take the rest will notify .
--- NOTE | 2025-08-23 09:30 | PC.SS ---
ATTACHE attempted bedside contact with the patient. Patient altered not responding.
[2025-08-23] MEDS: Magnesium Sulfate 2 GM Ivpb 2 GM/50 ML BAG IV (10:27)
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
--- NOTE | 2025-08-23 12:23 | PC.SS ---
Update: Ultra sound pending. Plan is for right side thorocentesis.
--- NOTE | 2025-08-23 12:33 | ESPR_ITS ---
RE: FATUMA ESPINOSA : 1990 DATE OF SERVICE: 08/22/2025 The patient is a 34-year-old unfortunate male with a past medical history of ischemic cardiomyopathy, status post bypass graft surgery for multivessel disease in 09/2024 and has been in the hospital more than at home. He is homeless as well transgender. Continued methamphetamine abuse. Ejection fraction 10-15 percent. He was in the hospital for several days, discharged on 08/20 and the patient came same evening back to [facility] with severe shortness of breath, bilateral pleural effusion, congestive heart failure, decompensation. Patient is being treated with IV diuretic, Lasix 40 mg b.i.d. He is still lethargic, drowsy, not waking up much. Received also multiple other medications. Patient and medical management, not complaining of any cardiac symptoms, chest pain, or shortness of breath. DIAGNOSTIC DATA: Cardiac echo report showed ejection fraction only 10-15 percent, very severe LV dysfunction, anterior wall akinetic, septal akinesis. There is mild high wall motion is seen, barely moving lateral wall and inferior wall segments. Left ventricle is markedly dilated. . PHYSICAL EXAMINATION: His physical examination is unchanged. He is lethargic, drowsy, and in no acute distress. Examination of head is atraumatic. Neck: Supple. JVD is present . Chest: Symmetrical. Lungs: Decreased breath sounds at bases, dullness. Heart: S1, S2, distant, tachycardia. Abdomen: Thin and soft. Extremities show 2+ edema of both feet. and Rectal: Not performed. DB2 DBA exam: Unremarkable. The patient is lethargic, drowsy. Detailed exam not performed. IMPRESSION: 1. Acute on chronic systolic heart failure with severe heart failure with bilateral pleural effusion, decompensated. 2. Ischemic cardiomyopathy with ejection fraction 10-15 percent, possible nonischemic element with methamphetamine abuse. 3. Status post bypass graft surgery. 4. Substance abuse. RECOMMENDATIONS: The patient's prognosis is poor because of low ejection fraction. Not a candidate for transplant, considering all his social history and methamphetamine abuse. Not a candidate for evaluation for any transplant. Recommend aggressive diuretic therapy. Lasix to be continued. Spironolactone is a good choice and we will continue to monitor for urine output and if it does not improve with Lasix, might consider using Bumex 2 mg b.i.d. DT: 23:17:47 TT: 00:36:00 Ref: [id number] - TID: [id number]
--- NOTE | 2025-08-23 15:25 | PC.SS ---
Rounding Note: Patient on IV diuersis. Cardiology and pulmonary are consulting.
[2025-08-23] MEDS: METOPROLOL SUCCINATE XL 25 MG TABCR 50 MG PO (18:34)
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
--- NOTE | 2025-08-23 20:30 | PC.NURSE ---
Patient is non compliant with his care, : would removed his oxygen and refused to wear, even when he is so short of breath. Explained the need, expressed understanding, but easily get irritated, did yell at the staff several times.
[2025-08-23 22:09] LABS: Hepatitis A Antibody IgM Non Reactive (Non React); Hepatitis B Core Antibody IgM Non Reactive (Non React); Hepatitis B Surface Antigen Non Reactive (Non React); Hepatitis C Antibody Non Reactive (Non React)
[2025-08-24] VITALS (12 sets, daily range): BP systolic 111–134; BP diastolic 88–98; PULSE 70–110; RESP 17–94; TEMP 36.1–36.9; O2SAT 91–98
--- NOTE | 2025-08-24 01:50 | PC.NURSE ---
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 Patient is very non compliant with his care. Will inform .
--- NOTE | 2025-08-24 05:37 | PC.NURSE ---
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 Discussed regarding his lasix IV, refused.
--- NOTE | 2025-08-24 09:20 | PC.NURSE ---
Pt refusing iv insertions and all medications. Education given. MD Rojas aware
--- NOTE | 2025-08-24 09:35 | PC.NURSE ---
pt also refusing labs MD aware, pt educated
[2025-08-24] MEDS: BUMETANIDE 0.5 MG TABLET 2 MG PO ×2 (11:00→20:00)
[2025-08-24 11:14] LABS: Basophils # (Auto) 0.0 Thou/mm3 (0.0-0.2); Basophils % (Auto) 1 % (0-2.5); Eosinophils # (Auto) 0.1 Thou/mm3 (0.0-0.5); Eosinophils % (Auto) 1 % (0-10); Hematocrit 42.3 % (41.0-53.0); Hemoglobin 13.1 g/dL (13.5-16.0); Immature Granulocytes Auto 0.03 Thou/mm3 (0.00-0.00); Lymphocytes # (Auto) 0.7 Thou/mm3 (1.0-4.8); Lymphocytes % (Auto) 10 % (10-50); Mean Corpuscular HGB Conc 31.0 g/dl (31.0-37.0); Mean Corpuscular Hemoglobin 28.2 pg (25.0-35.0); Mean Corpuscular Volume 91 fL (80-100); Monocytes # (Auto) 0.7 Thou/mm3 (0.0-0.8); Monocytes % (Auto) 9 % (0-12); Neutrophils # (Auto) 6.3 Thou/mm3 (1.8-7.7); Neutrophils % (Auto) 80 % (37-80); Nucleated Red Blood Cell # 0.00 Thou/mm3 (0.00-0.00); Nucleated Red Blood Cell % 0 /100 WBC (0); Platelet Count 314 Thou/mm3 (140-440); RDW Standard Deviation 59.8 fL (35.1-43.9); Red Blood Count 4.65 Miln/mm3 (4.50-5.90); White Blood Count 7.8 Thou/mm3 (3.8-10.6)
[2025-08-24 11:54] LABS: Alanine Aminotransferase 22 U/L (10-49); Albumin, Serum 4.1 gm/dL (3.5-5.0); Albumin/Globulin Ratio 1.1 (1.2-2.2); Alkaline Phosphatase 181 U/L (46-116); Anion Gap 11 (7-16); Aspartate Amino Transferase 28 U/L (0-34); BUN/Creatinine Ratio 27 Ratio (12-20); Bilirubin,Total 1.1 mg/dL (0.3-1.2); Blood Urea Nitrogen 24 mg/dL (9-23); Calcium 9.1 mg/dL (8.3-10.6); Calcium (Corrected) 9.1 mg/dL (8.5-10.1); Carbon Dioxide 29.5 mMol/L (20.0-31.0); Chloride 101 mMol/L (98-107); Creatinine (Component) 0.9 mg/dL (0.6-1.3); Globulin 3.9 gm/dL (2.3-3.5); Glucose 120 mg/dL (74-106); Magnesium 1.9 mg/dL (1.6-2.6); Osmolality,Calculated 286 (275-295); Phosphorous 3.1 mg/dL (2.4-5.1); Potassium 3.7 mMol/L (3.4-5.1); Sodium 141 mMol/L (136-145); Total Protein 8.0 gm/dL (5.7-8.2); eGFR > 60 See Note
[2025-08-24 11:57] LABS: Cocci Serology, IgG Negative (Negative)
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
[2025-08-24] MEDS: METOPROLOL SUCCINATE XL 25 MG TABCR 50 MG PO (15:23)
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
[2025-08-25] VITALS (11 sets, daily range): BP systolic 112–127; BP diastolic 80–103; PULSE 58–96; RESP 19–95; TEMP 36.4–36.8; O2SAT 93–99
[2025-08-25] MEDS: Milk Of Magnesia Susp 30 ML UDC PO (03:06)
--- NOTE | 2025-08-25 04:40 | PC.NURSE ---
called Dr. Guerin regarding patient refused AM labs, per doctor will let day team know.
[2025-08-25] MEDS: SPIRONOLACTONE 25 MG TABLET 100 MG PO (08:19)
[2025-08-25] MEDS: PANTOPRAZOLE 40 MG TABLET PO (08:21)
[2025-08-25] MEDS: BUMETANIDE 0.5 MG TABLET 2 MG PO (08:21)
[2025-08-25] MEDS: ASPIRIN EC 81 MG TABEC PO (08:21)
[2025-08-25] MEDS: CLOPIDOGREL BISULFATE 75 MG TABLET PO (08:22)
[2025-08-25] MEDS: FOLIC ACID 1 MG TABLET PO (08:22)
[2025-08-25] MEDS: LOSARTAN POTASSIUM 25 MG TABLET PO (08:22)
[2025-08-25] MEDS: METOPROLOL SUCCINATE XL 25 MG TABCR 50 MG PO (08:22)
--- NOTE | 2025-08-25 09:32 | PC.SS ---
Follow up note: Pt is currently on 20 liters of O2.
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
--- NOTE | 2025-08-25 10:59 | PC.NURSE ---
at 07:30 patient found kneeling on pillow on floor and states prefer to be on the floor, encourage to return to bed, fall education and prevention given. encourage to call for assistance. nadira nava in room.
--- NOTE | 2025-08-25 11:06 | PC.NURSE ---
dr. Rojas made aware patient refuse IV
--- NOTE | 2025-08-25 14:53 | PC.SS ---
Addendum entered by Brittany Andrew 08/25/25 15:52: SS again met with pt but pt is not being cooperative. Pt refuses to provide information for an emergency contact. Pt states he was staying with his ex sister in law but does not know the address. SS informed pt their is an address on file but pt kept saying he does not know. Pt is aware to provide SS with an address upon dc. Physician residents also spoke to pt about refusing treatment. Pt is aware if he refuses to provide address upon dc then he can utilize [employer] for transportation. Original Note: SS attempted to meet with pt 2 times in morning and afternoon but pt kept refusing to speak with SS. Pt asking SS to return later.
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
[2025-08-25] MEDS: ACETAMINOPHEN 325 MG TABLET 650 MG PO (19:52)
[2025-08-25] MEDS: BUMETANIDE INJ 0.25 MG/ML VIAL 4 ML 1 MG IVP (20:33)
[2025-08-25] MEDS: LORazepam 2 MG/ML VIAL IVP (20:39)
--- NOTE | 2025-08-25 21:39 | PC.NURSE ---
Pt refuses to have traffic monitor specialist on. Pt disconnected.
[2025-08-26] VITALS (12 sets, daily range): BP systolic 108–126; BP diastolic 79–98; PULSE 52–98; RESP 18–96; TEMP 35.9–36.4; O2SAT 92–100
[2025-08-26 06:04] LABS: Basophils # (Auto) 0.1 Thou/mm3 (0.0-0.2); Basophils % (Auto) 1 % (0-2.5); Eosinophils # (Auto) 0.1 Thou/mm3 (0.0-0.5); Eosinophils % (Auto) 2 % (0-10); Hematocrit 41.5 % (41.0-53.0); Hemoglobin 13.1 g/dL (13.5-16.0); Immature Granulocytes Auto 0.01 Thou/mm3 (0.00-0.00); Lymphocytes # (Auto) 0.9 Thou/mm3 (1.0-4.8); Lymphocytes % (Auto) 15 % (10-50); Mean Corpuscular HGB Conc 31.6 g/dl (31.0-37.0); Mean Corpuscular Hemoglobin 28.2 pg (25.0-35.0); Mean Corpuscular Volume 89 fL (80-100); Monocytes # (Auto) 0.8 Thou/mm3 (0.0-0.8); Monocytes % (Auto) 14 % (0-12); Neutrophils # (Auto) 3.8 Thou/mm3 (1.8-7.7); Neutrophils % (Auto) 68 % (37-80); Nucleated Red Blood Cell # 0.00 Thou/mm3 (0.00-0.00); Nucleated Red Blood Cell % 0 /100 WBC (0); Platelet Count 256 Thou/mm3 (140-440); RDW Standard Deviation 58.2 fL (35.1-43.9); Red Blood Count 4.64 Miln/mm3 (4.50-5.90); White Blood Count 5.6 Thou/mm3 (3.8-10.6)
[2025-08-26 09:24] LABS: Alanine Aminotransferase 19 U/L (10-49); Albumin, Serum 3.6 gm/dL (3.5-5.0); Albumin/Globulin Ratio 0.9 (1.2-2.2); Alkaline Phosphatase 168 U/L (46-116); Anion Gap 9 (7-16); Aspartate Amino Transferase < 8 U/L (0-34); BUN/Creatinine Ratio 21 Ratio (12-20); Bilirubin,Total 1.9 mg/dL (0.3-1.2); Blood Urea Nitrogen 21 mg/dL (9-23); Calcium 9.2 mg/dL (8.3-10.6); Calcium (Corrected) 9.5 mg/dL (8.5-10.1); Carbon Dioxide 31.1 mMol/L (20.0-31.0); Chloride 100 mMol/L (98-107); Creatinine (Component) 1.0 mg/dL (0.6-1.3); Globulin 4.2 gm/dL (2.3-3.5); Glucose 100 mg/dL (74-106); Osmolality,Calculated 282 (275-295); Potassium 4.2 mMol/L (3.4-5.1); Sodium 140 mMol/L (136-145); Total Protein 7.8 gm/dL (5.7-8.2); eGFR > 60 See Note
[2025-08-26] MEDS: LORazepam 2 MG/ML VIAL 1 MG IVP ×2 (10:03→18:45)
[2025-08-26] MEDS: Magnesium Sulfate 2 GM Ivpb 2 GM/50 ML BAG IV (10:03)
[2025-08-26] MEDS: BUMETANIDE INJ 0.25 MG/ML VIAL 4 ML 2 MG IVP ×2 (10:04→20:09)
[2025-08-26] MEDS: SPIRONOLACTONE 25 MG TABLET 100 MG PO (10:05)
[2025-08-26] MEDS: ASPIRIN EC 81 MG TABEC PO (10:05)
[2025-08-26] MEDS: PANTOPRAZOLE 40 MG TABLET PO (10:06)
[2025-08-26] MEDS: METOPROLOL SUCCINATE XL 25 MG TABCR 50 MG PO (10:06)
[2025-08-26] MEDS: CLOPIDOGREL BISULFATE 75 MG TABLET PO (10:06)
[2025-08-26] MEDS: FOLIC ACID 1 MG TABLET PO (10:06)
[2025-08-26] MEDS: LOSARTAN POTASSIUM 25 MG TABLET PO (10:06)
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
--- NOTE | 2025-08-26 17:47 | PC.NURSE ---
Angélica briceño called at 15:28, patient was walking through hallway becoming verbally aggressive with staff and not able to be redirected. escorted back to room and began striking table, spoke with patient, patient allowed to time to calm down. angélica briceño cleared at 15:41. patient de escalated resting quietly at that time.
--- NOTE | 2025-08-26 19:08 | PC.NURSE ---
Aldo RN receieved report for AM RN that pt. is refusing to wear court monitor.
--- NOTE | 2025-08-26 20:01 | PC.RT ---
@1942 Rt walked in room, heard external pulse ox monitor beeping with low desaturation, RT used own pulse ox, while waking patient , patient responded sp02 98% RN notified.
[2025-08-27] VITALS (10 sets, daily range): BP systolic 93–129; BP diastolic 66–97; PULSE 71–108; RESP 16–22; TEMP 36.3–37.1; O2SAT 94–100
[2025-08-27 06:07] LABS: Basophils # (Auto) 0.0 Thou/mm3 (0.0-0.2); Basophils % (Auto) 1 % (0-2.5); Eosinophils # (Auto) 0.1 Thou/mm3 (0.0-0.5); Eosinophils % (Auto) 2 % (0-10); Hematocrit 39.3 % (41.0-53.0); Hemoglobin 12.6 g/dL (13.5-16.0); Immature Granulocytes Auto 0.02 Thou/mm3 (0.00-0.00); Lymphocytes # (Auto) 0.9 Thou/mm3 (1.0-4.8); Lymphocytes % (Auto) 13 % (10-50); Mean Corpuscular HGB Conc 32.1 g/dl (31.0-37.0); Mean Corpuscular Hemoglobin 28.6 pg (25.0-35.0); Mean Corpuscular Volume 89 fL (80-100); Monocytes # (Auto) 1.1 Thou/mm3 (0.0-0.8); Monocytes % (Auto) 17 % (0-12); Neutrophils # (Auto) 4.6 Thou/mm3 (1.8-7.7); Neutrophils % (Auto) 68 % (37-80); Nucleated Red Blood Cell # 0.00 Thou/mm3 (0.00-0.00); Nucleated Red Blood Cell % 0 /100 WBC (0); Platelet Count 256 Thou/mm3 (140-440); RDW Standard Deviation 57.5 fL (35.1-43.9); Red Blood Count 4.40 Miln/mm3 (4.50-5.90); White Blood Count 6.8 Thou/mm3 (3.8-10.6)
[2025-08-27 06:36] LABS: Alanine Aminotransferase 14 U/L (10-49); Albumin, Serum 3.5 gm/dL (3.5-5.0); Albumin/Globulin Ratio 1.0 (1.2-2.2); Alkaline Phosphatase 159 U/L (46-116); Anion Gap 10 (7-16); Aspartate Amino Transferase 15 U/L (0-34); BUN/Creatinine Ratio 23 Ratio (12-20); Bilirubin,Total 1.3 mg/dL (0.3-1.2); Blood Urea Nitrogen 23 mg/dL (9-23); Calcium 8.6 mg/dL (8.3-10.6); Calcium (Corrected) 9.0 mg/dL (8.5-10.1); Carbon Dioxide 30.4 mMol/L (20.0-31.0); Chloride 102 mMol/L (98-107); Creatinine (Component) 1.0 mg/dL (0.6-1.3); Globulin 3.5 gm/dL (2.3-3.5); Glucose 111 mg/dL (74-106); Magnesium 1.2 mg/dL (1.6-2.6); Osmolality,Calculated 287 (275-295); Potassium 3.9 mMol/L (3.4-5.1); Sodium 142 mMol/L (136-145); Total Protein 7.0 gm/dL (5.7-8.2); eGFR > 60 See Note
--- NOTE | 2025-08-27 09:20 | XR_ITS ---
EXAMINATION: AP chest single view TECHNIQUE: AP portable semiupright chest single view Date and time: August 27, 2025, 0931 hours, comparison August 23, 2025 INDICATIONS: Shortness of breath this week. FINDINGS: Moderate CHF Moderate enlargement cardiac contour CABG Prominent vascular congestion with perihilar basilar edema Large bilateral pleural effusions Prominent osteopenia IMPRESSION: Moderate CHF Large bilateral pleural effusions
[2025-08-27] MEDS: BUMETANIDE INJ 0.25 MG/ML VIAL 4 ML 2 MG IVP ×2 (09:39→20:46)
[2025-08-27] MEDS: Magnesium Sulfate 4 GM Ivpb 4 GM/50 ML BAG IV ×2 (09:46→14:32)
[2025-08-27] MEDS: METOPROLOL SUCCINATE XL 25 MG TABCR 50 MG PO (09:47)
[2025-08-27] MEDS: LOSARTAN POTASSIUM 25 MG TABLET PO (09:47)
[2025-08-27] MEDS: ACETAMINOPHEN 325 MG TABLET 650 MG PO (09:48)
[2025-08-27] MEDS: SPIRONOLACTONE 25 MG TABLET 100 MG PO (09:48)
[2025-08-27] MEDS: PANTOPRAZOLE 40 MG TABLET PO (09:48)
[2025-08-27] MEDS: ASPIRIN EC 81 MG TABEC PO (09:49)
[2025-08-27] MEDS: FOLIC ACID 1 MG TABLET PO (09:49)
[2025-08-27] MEDS: CLOPIDOGREL BISULFATE 75 MG TABLET PO (09:49)
--- NOTE | 2025-08-27 09:53 | PC.SS ---
Follow up note: Pt is on 6 liters of O2. Continue to wean off O2. IRAJ and Lj RM attempted to meet with pt but was unsuccessful. SS asked pt about having an emergency contact and pt refused stating he did not want to be bothered (became upset).
[2025-08-27 10:13] LABS: B-Type Natriuretic Peptide 1196 pg/mL (0-100)
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
[2025-08-27] MEDS: Milk Of Magnesia Susp 30 ML UDC PO (13:46)
--- NOTE | 2025-08-27 16:34 | PC.NURSE ---
Patient ambulated in hallway accompanied by staff. On room air oxygen dropped to 88%. Returned to room placed back on 3L via NC Oxygen saturation increased to 96%.
[2025-08-27] MEDS: MELATONIN 3 MG TABLET 6 MG PO (20:43)
[2025-08-28] VITALS (7 sets, daily range): BP systolic 106–135; BP diastolic 74–97; PULSE 72–106; RESP 16–20; TEMP 36.1–37; O2SAT 95–100
--- NOTE | 2025-08-28 01:03 | PC.NURSE ---
called Dr. Riddle to ask for pain med since patient is complaining of pain 8/10 and does not want tylenol.
[2025-08-28] MEDS: GABAPENTIN 300 MG CAPSULE PO (01:28)
[2025-08-28 06:00] LABS: Basophils # (Auto) 0.0 Thou/mm3 (0.0-0.2); Basophils % (Auto) 0 % (0-2.5); Eosinophils # (Auto) 0.1 Thou/mm3 (0.0-0.5); Eosinophils % (Auto) 2 % (0-10); Hematocrit 37.8 % (41.0-53.0); Hemoglobin 12.3 g/dL (13.5-16.0); Immature Granulocytes Auto 0.02 Thou/mm3 (0.00-0.00); Lymphocytes # (Auto) 0.7 Thou/mm3 (1.0-4.8); Lymphocytes % (Auto) 11 % (10-50); Mean Corpuscular HGB Conc 32.5 g/dl (31.0-37.0); Mean Corpuscular Hemoglobin 28.7 pg (25.0-35.0); Mean Corpuscular Volume 88 fL (80-100); Monocytes # (Auto) 1.1 Thou/mm3 (0.0-0.8); Monocytes % (Auto) 16 % (0-12); Neutrophils # (Auto) 4.9 Thou/mm3 (1.8-7.7); Neutrophils % (Auto) 71 % (37-80); Nucleated Red Blood Cell # 0.00 Thou/mm3 (0.00-0.00); Nucleated Red Blood Cell % 0 /100 WBC (0); Platelet Count 244 Thou/mm3 (140-440); RDW Standard Deviation 56.2 fL (35.1-43.9); Red Blood Count 4.28 Miln/mm3 (4.50-5.90); White Blood Count 6.9 Thou/mm3 (3.8-10.6)
[2025-08-28 06:23] LABS: Alanine Aminotransferase 14 U/L (10-49); Albumin, Serum 3.6 gm/dL (3.5-5.0); Albumin/Globulin Ratio 1.0 (1.2-2.2); Alkaline Phosphatase 171 U/L (46-116); Anion Gap 9 (7-16); Aspartate Amino Transferase 16 U/L (0-34); BUN/Creatinine Ratio 29 Ratio (12-20); Bilirubin,Total 1.1 mg/dL (0.3-1.2); Blood Urea Nitrogen 26 mg/dL (9-23); Calcium 8.7 mg/dL (8.3-10.6); Calcium (Corrected) 9.0 mg/dL (8.5-10.1); Carbon Dioxide 30.1 mMol/L (20.0-31.0); Chloride 102 mMol/L (98-107); Creatinine (Component) 0.9 mg/dL (0.6-1.3); Globulin 3.5 gm/dL (2.3-3.5); Glucose 130 mg/dL (74-106); Magnesium 1.8 mg/dL (1.6-2.6); Osmolality,Calculated 287 (275-295); Potassium 3.8 mMol/L (3.4-5.1); Sodium 141 mMol/L (136-145); Total Protein 7.1 gm/dL (5.7-8.2); eGFR > 60 See Note
[2025-08-28] MEDS: BUMETANIDE INJ 10 MG in CONTAINER,EMPTY 50 ML 1 BAG 2 MG IV (12:09)
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
--- NOTE | 2025-08-28 15:46 | PD.RESEVENT ---
Documentation for date of: 08/28/25 Event Note Event Note: Date/Time: 08/28/25, 1537 The patient has decided to leave against medical advice because she is unhappy with the diuresis, requesting better food and to be left alone. Patient has normal mental status and adequate capacity to make medical decisions. The patient refuses continuation of hospital admission and wants to be discharged. The risks have been explained to the patient, including progression of possible reaccumulation of fluid in right lung, shortness of breath, heart failure, worsening illness and possible . The benefits of admission have also been explained, including the availability and proximity of nurses, physicians, monitoring, diagnostic testing, and treatment. The patient was able to understand and state the risks and benefits of hospital admission and had the opportunity to ask questions about their medical condition. The patient was treated to the extent that patient would allow and knows that they may return for care at any time. Patient was encouraged to return to the ER if shortness of breath returns or any other symptoms arise. Discussed with attending Dr. Rviero. Brisa Rojas, DO Internal Medicine PGY-1
--- NOTE | 2025-08-28 15:59 | PD.RESEVENT ---
Documentation for date of: 08/28/25 Event Note Event Note: Date/Time: 08/28/25 1537 The patient has decided to leave against medical advice because she is unhappy with the diuresis, requesting better food and to be left alone. Patient has normal mental status and adequate capacity to make medical decisions. The patient refuses continuation of hospital admission and wants to be discharged. The risks have been explained to the patient, including progression of possible reaccumulation of fluid in right lung, shortness of breath, heart failure, worsening illness and possible . The benefits of admission have also been explained, including the availability and proximity of nurses, physicians, monitoring, diagnostic testing, and treatment. The patient was able to understand and state the risks and benefits of hospital admission and had the opportunity to ask questions about their medical condition. The patient was treated to the extent that patient would allow and knows that they may return for care at any time. Patient was encouraged to return to the ER if shortness of breath returns or any other symptoms arise. Discussed with attending Dr. Rivero. Brisa Rojas, DO Internal Medicine PGY-1
--- NOTE | 2025-08-28 15:59 | PD.RESEVENT ---
Documentation for date of: 08/28/25 Event Note Event Note: Date/Time: 08/28/25 1555 Received a call from nursing stating that patient decided not to leave AMA due to difficulty breathing although patient had already signed the AMA paper. Hospital admission will continue. Discussed with attending Dr. Rivero. Brisa Rojas, DO Internal Medicine PGY-1
[2025-08-28 20:22] LABS: Albumin, Serum 3.4 gm/dL (3.5-5.0); Anion Gap 7 (7-16); BUN/Creatinine Ratio 24 Ratio (12-20); Blood Urea Nitrogen 24 mg/dL (9-23); Calcium 8.7 mg/dL (8.3-10.6); Calcium (Corrected) 9.2 mg/dL (8.5-10.1); Carbon Dioxide 33.2 mMol/L (20.0-31.0); Chloride 99 mMol/L (98-107); Creatinine (Component) 1.0 mg/dL (0.6-1.3); Glucose 143 mg/dL (74-106); Osmolality,Calculated 283 (275-295); Phosphorous 3.4 mg/dL (2.4-5.1); Potassium 4.2 mMol/L (3.4-5.1); Sodium 139 mMol/L (136-145); eGFR > 60 See Note
[2025-08-28] MEDS: VALPROIC ACID SYRUP 250 MG/5 ML UDC PO (21:49)
[2025-08-28] MEDS: MELATONIN 3 MG TABLET 6 MG PO (21:50)
[2025-08-28] MEDS: ACETAMINOPHEN 325 MG TABLET 650 MG PO (22:25)
[2025-08-29] MEDS: Magnesium Sulfate 2 GM Ivpb 2 GM/50 ML BAG IV (00:55)
--- NOTE | 2025-08-29 01:55 | PC.NURSE ---
notified Dr. Guerin regarding patient removed IV that is running Bumex drip and Mag sulfate. Patient is laying on her side and states just leave me like this . Patient is now asleep, refused IV for now, will try again later. Dr. Guerin aware. No new orders received.
[2025-08-29 02:03] VITALS: PULSE 83; RESP 20; O2SAT 96
[2025-08-29 04:00] VITALS: BP 135/95; PULSE 102; RESP 20; TEMP 36.3
[2025-08-29 06:06] LABS: Basophils # (Auto) 0.0 Thou/mm3 (0.0-0.2); Basophils % (Auto) 1 % (0-2.5); Eosinophils # (Auto) 0.2 Thou/mm3 (0.0-0.5); Eosinophils % (Auto) 3 % (0-10); Hematocrit 36.2 % (41.0-53.0); Hemoglobin 11.4 g/dL (13.5-16.0); Immature Granulocytes Auto 0.02 Thou/mm3 (0.00-0.00); Lymphocytes # (Auto) 0.7 Thou/mm3 (1.0-4.8); Lymphocytes % (Auto) 10 % (10-50); Mean Corpuscular HGB Conc 31.5 g/dl (31.0-37.0); Mean Corpuscular Hemoglobin 28.1 pg (25.0-35.0); Mean Corpuscular Volume 89 fL (80-100); Monocytes # (Auto) 1.0 Thou/mm3 (0.0-0.8); Monocytes % (Auto) 14 % (0-12); Neutrophils # (Auto) 5.0 Thou/mm3 (1.8-7.7); Neutrophils % (Auto) 72 % (37-80); Nucleated Red Blood Cell # 0.00 Thou/mm3 (0.00-0.00); Nucleated Red Blood Cell % 0 /100 WBC (0); Platelet Count 206 Thou/mm3 (140-440); RDW Standard Deviation 58.4 fL (35.1-43.9); Red Blood Count 4.06 Miln/mm3 (4.50-5.90); White Blood Count 7.0 Thou/mm3 (3.8-10.6)
[2025-08-29 07:59] LABS: Alanine Aminotransferase 16 U/L (10-49); Albumin, Serum 3.7 gm/dL (3.5-5.0); Albumin/Globulin Ratio 1.0 (1.2-2.2); Alkaline Phosphatase 174 U/L (46-116); Anion Gap 14 (7-16); Aspartate Amino Transferase 20 U/L (0-34); BUN/Creatinine Ratio 28 Ratio (12-20); Bilirubin,Total 1.3 mg/dL (0.3-1.2); Blood Urea Nitrogen 22 mg/dL (9-23); Calcium 8.5 mg/dL (8.3-10.6); Calcium (Corrected) 8.7 mg/dL (8.5-10.1); Carbon Dioxide 26.5 mMol/L (20.0-31.0); Chloride 101 mMol/L (98-107); Creatinine (Component) 0.8 mg/dL (0.6-1.3); Globulin 3.6 gm/dL (2.3-3.5); Glucose 156 mg/dL (74-106); Magnesium 2.0 mg/dL (1.6-2.6); Osmolality,Calculated 287 (275-295); Potassium 4.0 mMol/L (3.4-5.1); Sodium 141 mMol/L (136-145); Total Protein 7.3 gm/dL (5.7-8.2); eGFR > 60 See Note
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
[2025-08-29] MEDS: ACETAMINOPHEN 325 MG TABLET 650 MG PO (15:03)
[2025-08-29] MEDS: BUMETANIDE INJ 20 MG in CONTAINER,EMPTY 50 ML 1 BAG IV (15:14)
--- NOTE | 2025-08-29 15:51 | PC.NURSE ---
pt wants to leave AMA .CALL DR MALAVE RESIDENT IS AT BEDSIDE TO TALK TO THE PATIENT.PT DONOT WANT TO CONNECT TO [facility].
[2025-08-29 16:00] VITALS: BP 128/98; PULSE 107; RESP 19; TEMP 37
[2025-08-29 16:30] VITALS: PULSE 99; RESP 20; O2SAT 98
[2025-08-29 18:05] VITALS: PULSE 90; RESP 20; O2SAT 97
[2025-08-29 20:00] VITALS: BP 123/100; PULSE 113; RESP 20; TEMP 36.1; O2SAT 95
[2025-08-29] MEDS: MELATONIN 3 MG TABLET 6 MG PO (20:31)
[2025-08-29] MEDS: VALPROIC ACID SYRUP 250 MG/5 ML UDC PO (20:31)
[2025-08-30] VITALS (11 sets, daily range): BP systolic 113–142; BP diastolic 82–94; PULSE 80–120; RESP 19–22; TEMP 36.3–36.8; O2SAT 93–99
--- NOTE | 2025-08-30 00:20 | PC.NURSE ---
pt requested pain medication, pt was explained that tylenol is the only pain med available to give, pt agreed to get it but once promotion writer had the pills ready, pt refused. Pt stated that tylenol is not gonna help.
--- NOTE | 2025-08-30 08:13 | PC.NURSE ---
Pt refused medications after education on risk/benefit. Provide Dr Lee made aware. Will continue to monitor effects and re-educate.
[2025-08-30 08:50] LABS: Basophils # (Auto) 0.1 Thou/mm3 (0.0-0.2); Basophils % (Auto) 1 % (0-2.5); Eosinophils # (Auto) 0.3 Thou/mm3 (0.0-0.5); Eosinophils % (Auto) 4 % (0-10); Hematocrit 38.1 % (41.0-53.0); Hemoglobin 11.9 g/dL (13.5-16.0); Immature Granulocytes Auto 0.02 Thou/mm3 (0.00-0.00); Lymphocytes # (Auto) 0.6 Thou/mm3 (1.0-4.8); Lymphocytes % (Auto) 8 % (10-50); Mean Corpuscular HGB Conc 31.2 g/dl (31.0-37.0); Mean Corpuscular Hemoglobin 28.1 pg (25.0-35.0); Mean Corpuscular Volume 90 fL (80-100); Monocytes # (Auto) 1.0 Thou/mm3 (0.0-0.8); Monocytes % (Auto) 14 % (0-12); Neutrophils # (Auto) 5.3 Thou/mm3 (1.8-7.7); Neutrophils % (Auto) 73 % (37-80); Nucleated Red Blood Cell # 0.00 Thou/mm3 (0.00-0.00); Nucleated Red Blood Cell % 0 /100 WBC (0); Platelet Count 204 Thou/mm3 (140-440); RDW Standard Deviation 58.5 fL (35.1-43.9); Red Blood Count 4.24 Miln/mm3 (4.50-5.90); White Blood Count 7.2 Thou/mm3 (3.8-10.6)
[2025-08-30 09:13] LABS: Alanine Aminotransferase 19 U/L (10-49); Albumin, Serum 4.2 gm/dL (3.5-5.0); Albumin/Globulin Ratio 1.1 (1.2-2.2); Alkaline Phosphatase 186 U/L (46-116); Anion Gap 8 (7-16); Aspartate Amino Transferase 23 U/L (0-34); BUN/Creatinine Ratio 21 Ratio (12-20); Bilirubin,Total 1.5 mg/dL (0.3-1.2); Blood Urea Nitrogen 17 mg/dL (9-23); Calcium 9.0 mg/dL (8.3-10.6); Calcium (Corrected) 9.0 mg/dL (8.5-10.1); Carbon Dioxide 35.2 mMol/L (20.0-31.0); Chloride 97 mMol/L (98-107); Creatinine (Component) 0.8 mg/dL (0.6-1.3); Globulin 3.9 gm/dL (2.3-3.5); Glucose 111 mg/dL (74-106); Magnesium 1.6 mg/dL (1.6-2.6); Osmolality,Calculated 281 (275-295); Potassium 3.9 mMol/L (3.4-5.1); Sodium 140 mMol/L (136-145); Total Protein 8.1 gm/dL (5.7-8.2); eGFR > 60 See Note
--- NOTE | 2025-08-30 11:05 | PC.SS ---
Follow up note: Pt is on 5 liters of O2. Pt will return to community upon dc. Wean off O2.
[2025-08-30] MEDS: SPIRONOLACTONE 25 MG TABLET 100 MG PO (12:22)
[2025-08-30] MEDS: METOPROLOL SUCCINATE XL 25 MG TABCR 50 MG PO (12:24)
[2025-08-30] MEDS: FOLIC ACID 1 MG TABLET PO (12:25)
[2025-08-30] MEDS: ASPIRIN EC 81 MG TABEC PO (12:25)
[2025-08-30] MEDS: LOSARTAN POTASSIUM 25 MG TABLET PO (12:25)
[2025-08-30] MEDS: CLOPIDOGREL BISULFATE 75 MG TABLET PO (12:25)
[2025-08-30] MEDS: VALPROIC ACID SYRUP 250 MG/5 ML UDC PO (12:26)
[2025-08-30] MEDS: Magnesium Sulfate 4 GM Ivpb 4 GM/50 ML BAG IV (12:34)
--- NOTE | 2025-08-30 14:26 | PC.NURSE ---
Patient began unhooking ivs on her own stating im leaving, i want to leave now , Renee DANIELS attempted to redirect patient and notify patient of risks of leaving and to waitto speak to a provider first . Pt refused and stated SHUTUP BITCH I communicated patient to not use foul language and that she would wait for the provider. pt then stated Shes an annoying BITCH iWANT TO LEAVE i was able to redirect patient back to room to remopve iv as she wanted to leave ama . Dr. Lee notified and at bedside with patient. communicated risks of leaving ama everything up to and including . pt stated she needs to go and get fresh air. pt signed out AMA
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
== END 2025-08-30 14:28 | disposition left against medical advice (07) | DRG 194 ==
LOC: SERX 08-21 06:09 → SERHOLD 08-21 06:30 → S2NX 08-21 20:01 → S3SX 08-23 16:48
PROVIDERS: Internal Medicine; Admitting Provider Student in an Organized Health Care Education/Training Program; Emergency Provider Emergency Medicine; Visit Provider Student in an Organized Health Care Education/Training Program
DX: I11.0 Hypertensive heart disease with heart failure (principal); I50.23 Acute on chronic systolic (congestive) heart failure; J96.01 Acute respiratory failure with hypoxia; Z59.00 Homelessness unspecified; K70.31 Alcoholic cirrhosis of liver with ascites; E11.65 Type 2 diabetes mellitus with hyperglycemia; F64.0 Transsexualism; F15.10 Other stimulant abuse, uncomplicated; I25.5 Ischemic cardiomyopathy; J45.909 Unspecified asthma, uncomplicated; I25.10 Atherosclerotic heart disease of native coronary artery without angina pectoris; I27.20 Pulmonary hypertension, unspecified; J91.8 Pleural effusion in other conditions classified elsewhere; Z53.20 Procedure and treatment not carried out because of patient's decision for unspecified reasons; Z95.1 Presence of aortocoronary bypass graft; Z79.01 Long term (current) use of anticoagulants; Z79.02 Long term (current) use of antithrombotics/antiplatelets; Z79.82 Long term (current) use of aspirin; Z79.84 Long term (current) use of oral hypoglycemic drugs; J94.0 Chylous effusion; Z79.899 Other long term (current) drug therapy; Z91.119 Patient's noncompliance with dietary regimen due to unspecified reason; Z91.148 Patient's other noncompliance with medication regimen for other reason; N30.90 Cystitis, unspecified without hematuria
CPT/HCPCS: 36415; 36600; 71045; 71275; 74177; 76705; 80053; 80069; 80074; 80307; 80320; 81001; 82042; 82140; 82150; 82248; 82550; 82803; 82945; 83036; 83605; 83615; 83690; 83735; 83880; 84100; 84145; 84157; 84443; 84484; 85025; 85379; 85610; 85652; 85730; 86140; 86331; 86635; 86703; 87040; 87070; 87075; 87205; 87502; 87635; 89051; 93005; 93225; 93306; 93970; 94640; 94660; 94664; 94762; 96374; 96375; 96376; 99285; A4649; C1729; J1200; J1630; J1650; J1938; J2060; J2270; J2470; J2919; J3411; J3475; J3490; Q9967; A9270; G0480

== ENCOUNTER 2025-08-30 16:59 | Inpatient (IN) | payer MEDICAID, SELFPAY ==
--- NOTE | 2025-08-30 17:13 | EKG_ITS ---
[facility] Test Date: 2025-08-30 Pat Name: FATUMA ESPINOSA Department: Room: - Gender: Male Medical Collector: : 1990 Requested By: Bryan Leone Order Number: [id number] Reading MD: Bryan Leone Measurements Intervals Gentry Rate: 97 P: 48 AL: 151 QRS: -79 QRSD: 93 T: 88 QT: 368 QTc: 468 Interpretive Statements SINUS RHYTHM LEFT AXIS DEVIATION [QRS AXIS < -30] LOW QRS VOLTAGE IN EXTREMITY LEADS [QRS DEFLECTION < 0.5 mV IN LIMB LEADS] POSSIBLE INFERIOR MYOCARDIAL INFARCTION , PROBABLY OLD [30 ms Q WAVE IN II/aVF] ANTEROLATERAL MYOCARDIAL INFARCTION , OF INDETERMINATE AGE [40+ ms Q WAVE IN I/aVL/V3-V6] No previous ECG available for comparison /store/S0/[id number]
--- NOTE | 2025-08-30 17:13 | XR_ITS ---
EXAMINATION: AP chest single view TECHNIQUE: AP portable upright chest single view Date and time: August 30, 2025, 1737 hours, comparison August 27, 2025 INDICATION: Shortness of breath today. FINDINGS: Moderate CHF Mild enlargement cardiac contour, CABG, prominent vascular congestion with perihilar edema Large bilateral pleural effusions IMPRESSION: Again noted moderate CHF
--- NOTE | 2025-08-30 17:15 | EDNOTE_ITS ---
ED General RME/HPI General Chief complaint: General Adult/Misc Complain Stated complaint: FEELING UNWELL Time Seen by Provider: 08/30/25 17:15 Arrival date/time: 08/30/25 16:59 Patient presents via EMS with shortness of breath. Patient is unwilling to answer questions Turns out the patient left AMA from this facility this morning refusing a.m. meds was on a Bumex drip, and noncompliant with fluid restriction. Patient now returns or shortness of breath EMS report. When discussed with the patient the patient said he could not walk more than 20 steps without becoming acutely short of breath and realized that he had messed up. The patient vehemently refused taking any street drugs while he was out of the hospital. EMS reported oxygen saturation of 97% on room air however when they move him from the [facility] to the bed his oxygen saturations dropped to 92%. Related Data Previous Rx's ?Medication ?Instructions ?Recorded albuterol sulfate 90 mcg/actuation 2 inh inhalation Q4 H PRN shortness 08/16/24 aerosol inhaler of breath or wheezing #8.5 g jennifer Allergies Allergy/AdvReac Type Severity Reaction Status Date / Time No Known Allergies Allergy Verified 08/16/24 10:19 Course Course Course Narrative: At 1720, patient's case discussed with Dr. Rivero, the attending for the residents from which team the patient left AMA this morning. He is requesting standard labs chest x-ray and drug screen At 1730 nurse reports the patient went and moved over to the bed from the [facility] decompensated to 85% on room air patient is now on 4 L nasal cannula. Patient's clinical findings, laboratory results and imaging discussed with resident for Dr. Thompson who agrees to accept the patient for admission admission diagnosis of shortness of breath congestive heart failure Quality Measures none Orders Category Date Time Status EKG (ED ONLY) *Do not use* NOW Care 08/30/25 17:13 Completed EKG (ED Only) Stat Exams 08/30/25 17:13 Draft XR chest 1V Stat Exams 08/30/25 17:13 Completed B-Type Natriuretic Peptide Stat Lab 08/30/25 18:03 Completed CBC Stat Lab 08/30/25 18:03 Completed Comprehensive Metabolic Panel Stat Lab 08/30/25 18:03 Completed Drug Screen,Urine Stat Lab 08/30/25 17:13 Ordered LDH (Lactate Dehydrogenase) Stat Lab 08/30/25 18:03 Completed Magnesium Stat Lab 08/30/25 18:03 Completed Partial Thromboplastin Time Stat Lab 08/30/25 18:03 Completed Prothrombin Time with INR Stat Lab 08/30/25 18:03 Completed Troponin I Stat Lab 08/30/25 18:03 Completed Urinalysis, C/S if Indicated Stat Lab 08/30/25 17:13 Ordered Vital Signs Vital signs: Vital Signs Temperature 97.6 F 08/30/25 17:18 Pulse Rate 104 H 08/30/25 17:18 Respiratory Rate 20 08/30/25 17:18 Blood Pressure 104/63 08/30/25 17:18 Pulse Oximetry (%) 93 L 08/30/25 17:18 Oxygen Delivery Method Room Air 08/30/25 17:18 Discharge Plan Plan Patient Disposition: Other Care w/in Hosp ([facility]) Prescriptions/Referrals Prescriptions/Med Rec: No Action albuterol sulfate 90 mcg/actuation HFA aerosol inhaler 2 inh inhalation Q4H PRN (Reason: shortness of breath or wheezing) Qty: 8.5 0RF Rx Instructions: until breathing returns to target peak flow/parameters Referrals: No Primary/Family,Physician [Primary Care Provider] - In 1 week Problem List Clinical Impression: Shortness of breath, Congestive heart failure, Exertional dyspnea Patient/Caregiver Discharge Instructions Print Language: Yakut Stand Alone Forms: Joyce Award Info., Patient Portal Info Letter PA/SHELLFISH MEAT SEPARATOR OPERATOR Supervising Physician PA/SHELLFISH MEAT SEPARATOR OPERATOR Supervising Physician: Bryan Rojas ENP [facility] Clinical Information Provided by: patient and EMS Medical Records reviewed [facility] and EMS Chronic Illness/Social Conditions Explain: CABG history of methamphetamine abuse EKG Interpretation EKG #1: EKG Interpretation: EKG performed at 1723 shows a ventricular rate of 97 [place] interval 151 QRS of 93 QTc of 422 the sinus rhythm left axis deviation. Labs Labs: interpreted by wa Lab(s) Interpretation(s): CBC shows no leukocytosis H&H of 11.9 and 37.2 respectively no thrombocytopenia Coags show PT of 12.5 INR 1.2 PTT of 27.3. CMP shows a chloride 94 CO2 of 35 gap of 10. No other significant electrolyte imbalances other than a glucose of 138. Magnesium at 1.4 T. bili at 1.6 alk phos at 187. BMP 1118 Troponin at 0.039. Imaging Imaging interpretation: interpreted by me Imaging Interpretation(s): Chest x-ray shows moderate CHF.
[2025-08-30 17:18] VITALS: BP 104/63; PULSE 104; RESP 20; TEMP 36.4; O2SAT 93
[2025-08-30 18:13] LABS: Basophils # (Auto) 0.1 Thou/mm3 (0.0-0.2); Basophils % (Auto) 1 % (0-2.5); Eosinophils # (Auto) 0.2 Thou/mm3 (0.0-0.5); Eosinophils % (Auto) 2 % (0-10); Hematocrit 37.2 % (41.0-53.0); Hemoglobin 11.9 g/dL (13.5-16.0); Immature Granulocytes Auto 0.02 Thou/mm3 (0.00-0.00); Lymphocytes # (Auto) 0.5 Thou/mm3 (1.0-4.8); Lymphocytes % (Auto) 7 % (10-50); Mean Corpuscular HGB Conc 32.0 g/dl (31.0-37.0); Mean Corpuscular Hemoglobin 28.2 pg (25.0-35.0); Mean Corpuscular Volume 88 fL (80-100); Monocytes # (Auto) 0.8 Thou/mm3 (0.0-0.8); Monocytes % (Auto) 11 % (0-12); Neutrophils # (Auto) 5.8 Thou/mm3 (1.8-7.7); Neutrophils % (Auto) 79 % (37-80); Nucleated Red Blood Cell # 0.00 Thou/mm3 (0.00-0.00); Nucleated Red Blood Cell % 0 /100 WBC (0); Platelet Count 220 Thou/mm3 (140-440); RDW Standard Deviation 57.8 fL (35.1-43.9); Red Blood Count 4.22 Miln/mm3 (4.50-5.90); White Blood Count 7.4 Thou/mm3 (3.8-10.6)
[2025-08-30 18:30] LABS: INR 1.2 (0.9-1.3); Partial Thromboplastin Time 27.3 Seconds (22.0-36.0); Prothrombin Time 12.5 Seconds (9.0-12.2)
[2025-08-30 18:33] LABS: B-Type Natriuretic Peptide 1118 pg/mL (0-100)
[2025-08-30 18:34] LABS: Alanine Aminotransferase 21 U/L (10-49); Albumin, Serum 4.0 gm/dL (3.5-5.0); Albumin/Globulin Ratio 1.0 (1.2-2.2); Alkaline Phosphatase 187 U/L (46-116); Anion Gap 10 (7-16); Aspartate Amino Transferase 24 U/L (0-34); BUN/Creatinine Ratio 20 Ratio (12-20); Bilirubin,Total 1.6 mg/dL (0.3-1.2); Blood Urea Nitrogen 18 mg/dL (9-23); Calcium 9.2 mg/dL (8.3-10.6); Calcium (Corrected) 9.2 mg/dL (8.5-10.1); Carbon Dioxide 35.0 mMol/L (20.0-31.0); Chloride 94 mMol/L (98-107); Creatinine (Component) 0.9 mg/dL (0.6-1.3); Globulin 4.0 gm/dL (2.3-3.5); Glucose 138 mg/dL (74-106); LDH (Lactate Dehydrogenase) 218 U/L (120-246); Magnesium 1.4 mg/dL (1.6-2.6); Osmolality,Calculated 281 (275-295); Potassium 3.9 mMol/L (3.4-5.1); Sodium 139 mMol/L (136-145); Total Protein 8.0 gm/dL (5.7-8.2); Troponin I 0.039 ng/mL (0.0-0.045); eGFR > 60 See Note
[2025-08-30 19:07] VITALS: BP 110/72; PULSE 98; RESP 17; TEMP 36.6; O2SAT 97
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
[2025-08-30 21:06] VITALS: BP 129/73; PULSE 99; RESP 20; TEMP 36.8; O2SAT 98
[2025-08-30] MEDS: DIVALPROEX SOD EC 125 MG TABEC 250 MG PO (21:53)
[2025-08-30 21:55] VITALS: PULSE 92
--- NOTE | 2025-08-30 21:59 | PC.NURSE ---
Dr. Allen notified regarding patient's BP 91/56 and whether to start Bumex drip or not. stated to wait and he would come assess patient.
[2025-08-30 22:00] VITALS: BP 94/58; PULSE 103; RESP 21; TEMP 36.7; O2SAT 99
[2025-08-30 22:27] LABS: Collection Type, Urine Clean Catch; Squamous Epithelial Cell,Urine 0 /hpf (0-5)
[2025-08-30 22:36] LABS: Amorphous Crystals,Urine Present (Absent); Bacteria,Urine Rare; Bilirubin,Urine Negative (Negative); Blood,Urine Negative (Negative); Clarity,Urine Clear (Clear/Hazy); Color,Urine Lt-Yellow (Lt Yel-Yel); Culture Indicated,Urine Not Indicated; Glucose, Urine Negative (Negative); Ketones,Urine Negative (Negative); Leukocyte Esterase,Urine Negative (Negative); Nitrite,Urine Negative (Negative); PH,Urine 8.0 (5.0-7.0); Protein,Urine Negative (Neg - Trace); RBC,Urine 1 /hpf (0-3); Specific Gravity,Urine 1.014 (1.001-1.035); Urobilinogen,Urine Negative mg/dL (0.0-1.0); WBC,Urine < 1 /hpf (0-5)
[2025-08-30 22:58] LABS: Amphetamine/Methamp Scrn,U Negative (Negative); Barbiturate Screen,Urine Negative (Negative); Benzodiazepines Screen,Urine Negative (Negative); Benzoylecgonine Screen, Ur Negative (Negative); Fentanyl Screen,Urine Negative (Negative); Opiate Screen,Urine Negative (Negative); THC Screen,Urine Negative (Negative)
[2025-08-30 23:22] VITALS: BP 105/61; PULSE 94
[2025-08-30] MEDS: BUMETANIDE INJ 0.25 MG/ML VIAL 4 ML 2 MG IVP (23:22)
[2025-08-30] MEDS: MAGNESIUM OXIDE 400 MG TABLET PO (23:22)
--- NOTE | 2025-08-30 23:41 | PC.NURSE ---
Dr. Allen notified that patient refusing IV magnesium as it was burning at IV site.
[2025-08-31] VITALS (17 sets, daily range): BP systolic 78–112; BP diastolic 52–84; PULSE 70–101; RESP 17–25; TEMP 36.4–36.7; O2SAT 94–97
[2025-08-31 06:25] LABS: INR 1.1 (0.9-1.3); Partial Thromboplastin Time 27.6 Seconds (22.0-36.0); Prothrombin Time 12.0 Seconds (9.0-12.2)
[2025-08-31 06:32] LABS: Basophils # (Auto) 0.0 Thou/mm3 (0.0-0.2); Basophils % (Auto) 1 % (0-2.5); Eosinophils # (Auto) 0.2 Thou/mm3 (0.0-0.5); Eosinophils % (Auto) 3 % (0-10); Hematocrit 34.0 % (41.0-53.0); Hemoglobin 11.1 g/dL (13.5-16.0); Immature Granulocytes Auto 0.03 Thou/mm3 (0.00-0.00); Lymphocytes # (Auto) 0.8 Thou/mm3 (1.0-4.8); Lymphocytes % (Auto) 12 % (10-50); Mean Corpuscular HGB Conc 32.6 g/dl (31.0-37.0); Mean Corpuscular Hemoglobin 28.5 pg (25.0-35.0); Mean Corpuscular Volume 87 fL (80-100); Monocytes # (Auto) 1.1 Thou/mm3 (0.0-0.8); Monocytes % (Auto) 16 % (0-12); Neutrophils # (Auto) 4.7 Thou/mm3 (1.8-7.7); Neutrophils % (Auto) 68 % (37-80); Nucleated Red Blood Cell # 0.00 Thou/mm3 (0.00-0.00); Nucleated Red Blood Cell % 0 /100 WBC (0); Platelet Count 224 Thou/mm3 (140-440); RDW Standard Deviation 57.3 fL (35.1-43.9); Red Blood Count 3.89 Miln/mm3 (4.50-5.90); White Blood Count 6.9 Thou/mm3 (3.8-10.6)
[2025-08-31 06:43] LABS: Alanine Aminotransferase 22 U/L (10-49); Albumin, Serum 3.7 gm/dL (3.5-5.0); Albumin/Globulin Ratio 1.0 (1.2-2.2); Alkaline Phosphatase 178 U/L (46-116); Anion Gap 10 (7-16); Aspartate Amino Transferase 26 U/L (0-34); BUN/Creatinine Ratio 20 Ratio (12-20); Bilirubin,Total 1.3 mg/dL (0.3-1.2); Blood Urea Nitrogen 18 mg/dL (9-23); Calcium 8.9 mg/dL (8.3-10.6); Calcium (Corrected) 9.1 mg/dL (8.5-10.1); Carbon Dioxide 32.8 mMol/L (20.0-31.0); Chloride 96 mMol/L (98-107); Creatinine (Component) 0.9 mg/dL (0.6-1.3); Globulin 3.7 gm/dL (2.3-3.5); Glucose 114 mg/dL (74-106); Magnesium 1.5 mg/dL (1.6-2.6); Osmolality,Calculated 280 (275-295); Phosphorous 4.2 mg/dL (2.4-5.1); Potassium 3.9 mMol/L (3.4-5.1); Sodium 139 mMol/L (136-145); Total Protein 7.4 gm/dL (5.7-8.2); eGFR > 60 See Note
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
[2025-08-31] MEDS: METOPROLOL SUCCINATE XL 25 MG TABCR 50 MG PO (09:09)
[2025-08-31] MEDS: PANTOPRAZOLE 40 MG TABLET PO (09:10)
[2025-08-31] MEDS: SPIRONOLACTONE 25 MG TABLET 100 MG PO (09:10)
[2025-08-31] MEDS: LOSARTAN POTASSIUM 25 MG TABLET PO (09:10)
[2025-08-31] MEDS: Magnesium Sulfate 4 GM Ivpb 4 GM/50 ML BAG IV (09:13)
[2025-08-31] MEDS: MIDODRINE 5 MG TABLET 10 MG PO ×2 (09:19→14:17)
[2025-08-31 10:03] LABS: LDH (Lactate Dehydrogenase) 212 U/L (120-246)
[2025-08-31] MEDS: MAGNESIUM OXIDE 400 MG TABLET PO ×2 (13:34→17:43)
[2025-08-31] MEDS: DIVALPROEX SOD EC 125 MG TABEC 250 MG PO ×2 (14:14→21:18)
[2025-08-31] MEDS: MIDODRINE 5 MG TABLET 15 MG PO (21:19)
[2025-09-01] VITALS (13 sets, daily range): BP systolic 94–121; BP diastolic 57–94; PULSE 88–97; RESP 12–22; TEMP 36.1–37; O2SAT 93–100
--- NOTE | 2025-09-01 | XR_ITS ---
EXAMINATION: AP chest single view TECHNIQUE: AP semiupright portable chest single view Date and time: September 01, 2025, 1327 hours, comparison August 30, 2025 INDICATIONS: Post right thoracentesis. FINDINGS: Significant decrease in right pleural fluid No pneumothorax Mild to moderate enlargement cardiac contour with prominent vascular congestion Large left pleural effusion IMPRESSION: No pneumothorax post right thoracentesis
[2025-09-01 05:59] LABS: Basophils # (Auto) 0.1 Thou/mm3 (0.0-0.2); Basophils % (Auto) 1 % (0-2.5); Eosinophils # (Auto) 0.2 Thou/mm3 (0.0-0.5); Eosinophils % (Auto) 4 % (0-10); Hematocrit 36.0 % (41.0-53.0); Hemoglobin 11.5 g/dL (13.5-16.0); Immature Granulocytes Auto 0.02 Thou/mm3 (0.00-0.00); Lymphocytes # (Auto) 0.9 Thou/mm3 (1.0-4.8); Lymphocytes % (Auto) 14 % (10-50); Mean Corpuscular HGB Conc 31.9 g/dl (31.0-37.0); Mean Corpuscular Hemoglobin 27.8 pg (25.0-35.0); Mean Corpuscular Volume 87 fL (80-100); Monocytes # (Auto) 0.8 Thou/mm3 (0.0-0.8); Monocytes % (Auto) 12 % (0-12); Neutrophils # (Auto) 4.4 Thou/mm3 (1.8-7.7); Neutrophils % (Auto) 70 % (37-80); Nucleated Red Blood Cell # 0.00 Thou/mm3 (0.00-0.00); Nucleated Red Blood Cell % 0 /100 WBC (0); Platelet Count 200 Thou/mm3 (140-440); RDW Standard Deviation 56.6 fL (35.1-43.9); Red Blood Count 4.13 Miln/mm3 (4.50-5.90); White Blood Count 6.4 Thou/mm3 (3.8-10.6)
[2025-09-01 06:05] LABS: Alanine Aminotransferase 25 U/L (10-49); Albumin, Serum 3.5 gm/dL (3.5-5.0); Albumin/Globulin Ratio 0.9 (1.2-2.2); Alkaline Phosphatase 178 U/L (46-116); Anion Gap 7 (7-16); Aspartate Amino Transferase 25 U/L (0-34); BUN/Creatinine Ratio 20 Ratio (12-20); Bilirubin,Total 1.3 mg/dL (0.3-1.2); Blood Urea Nitrogen 16 mg/dL (9-23); Calcium 8.9 mg/dL (8.3-10.6); Calcium (Corrected) 9.3 mg/dL (8.5-10.1); Carbon Dioxide 29.1 mMol/L (20.0-31.0); Chloride 99 mMol/L (98-107); Creatinine (Component) 0.8 mg/dL (0.6-1.3); Globulin 3.9 gm/dL (2.3-3.5); Glucose 124 mg/dL (74-106); Magnesium 1.8 mg/dL (1.6-2.6); Osmolality,Calculated 272 (275-295); Phosphorous 3.7 mg/dL (2.4-5.1); Potassium 4.2 mMol/L (3.4-5.1); Sodium 135 mMol/L (136-145); Total Protein 7.4 gm/dL (5.7-8.2); eGFR > 60 See Note
--- NOTE | 2025-09-01 08:41 | PC.SS ---
Follow up note: Wean off O2. Pt is non compliant with medical treatment. Pt refused thoracentesis. Pt will return to the community at [place].
--- NOTE | 2025-09-01 11:54 | PC.SS ---
SS attempted to meet with pt regarding his d/c plan. Pt is difficult to speak with. Pt would not engage in conversation with SS. SS asked pt for his medical decision maker and he refuses to answer. Pt continues to say I do not know for any questing he asked and becomes agitated. SS offered pt options for d/c to homeless detention and pt refused. SS informed pt the importance of having and medical decision maker and he still refused to answer. Pt is aware if he is unable to provide an address for d/c then he can utilize the bus. SS is unable to order DME, home O2 if pt returns to the community. Pt becomes upset when SS speaks with him. Pt ambulates independently without assistance or DME. Pt is ok with all ADLs. Pt is a re admit and previously left AMA on 08-30-25.
--- NOTE | 2025-09-01 12:25 | PC.NURSE ---
Went into patient's room to give medications and patient states whatever just hurry up was able to take BP 121/89 and HR 91. Following this, patient refused meds once they were in the cup because they are a lot of pills. Educated patient on reason and use of each medication and they state understanding but refuse to take all of it. Also educated patient on taking one at a time or crushed and they stated that is the same thing and it is a lot of pills. Patient is refusing nursing assessment and medications. At 1230, patient agreed to take medication by charge nurse and given depakote, ibuprofen, spironolactone, and mag ox. metolazone pending pharmacy delivery. midodrine held for BP 121/89.
[2025-09-01] MEDS: IBUPROFEN TAB 400 MG TABLET PO (12:30)
[2025-09-01] MEDS: MAGNESIUM OXIDE 400 MG TABLET PO (12:30)
[2025-09-01] MEDS: DIVALPROEX SOD EC 125 MG TABEC 250 MG PO ×2 (12:30→21:36)
[2025-09-01] MEDS: SPIRONOLACTONE 25 MG TABLET 100 MG PO (12:30)
--- NOTE | 2025-09-01 12:32 | XR_ITS ---
EXAMINATION: Ultrasound-guided right thoracentesis Ultrasound-guided left hemithoraces Date and time: 2024, 1255 hours INDICATIONS: Difficulty breathing this week, large bilateral pleural effusions on chest x-ray August 30, 2025 TECHNIQUE AND FINDINGS: Grayscale sonographic images right and left hemithoraces demonstrating bilateral large pleural effusions Informed consent provided. Timeout performed. Skin prepped over the right hemithorax and sterile drape applied, hand hygiene ultrasound sterile technique 1% lidocaine administered for local anesthesia Utilizing sonographic guidance 5 Mosotho catheter placed in the right pleural space 2950 cc pleural fluid removed IMPRESSION: Large bilateral pleural effusions Successful ultrasound-guided right thoracentesis, 2950 cc pleural fluid
--- NOTE | 2025-09-01 12:40 | PC.SS ---
SS was present when nursing staff and charge nurse met with pt to explaine the importance of taking his medication, getting a thoracentesis, and receiving medical treatment. Pt has agreed to cooperate with nursing staff.
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
[2025-09-01 13:46] LABS: Pleural Fluid WBC 193 /cmm
[2025-09-01 13:49] LABS: Pleural Fluid Appearance Hazy; Pleural Fluid Color Yellow; Pleural Fluid Mononuclear 89 %; Pleural Fluid Polynuclear 11 %; Pleural Fluid RBC 1000 /cmm
[2025-09-01 14:02] LABS: LDH (Lactate Dehydrogenase) 229 U/L (120-246)
[2025-09-01 14:03] LABS: Amylase,Pleural Fluid 30 IU/L; Glucose,Pleural Fluid 140 mg/dL; LDH,Pleural Fluid 80 IU/L; Protein Total,Pleural Fluid 2.9 g/dL
[2025-09-01] MEDS: MIDODRINE 5 MG TABLET 15 MG PO ×2 (14:28→21:36)
--- NOTE | 2025-09-01 16:20 | PC.NURSE ---
Walked into patient's room to give med but patient was sound asleep with chest rise and fall, refusing to wake up. Spoke with VICE ADMIRAL and was told they woke up for their vitals to be taken around 1540 and got agitated about being woken up, then easily went back to sleep.
--- NOTE | 2025-09-01 16:42 | PC.NURSE ---
Patient refusing mag ox and metolazone. Patient got agitated after trying to educate and stated kendy me empdaniel in [place]ican, translating to leave me alone
[2025-09-02] VITALS (10 sets, daily range): BP systolic 99–125; BP diastolic 71–87; PULSE 83–96; RESP 18–20; TEMP 36.1–37.3; O2SAT 96–99
[2025-09-02] MEDS: ACETAMINOPHEN 325 MG TABLET 650 MG PO (03:59)
[2025-09-02] MEDS: SPIRONOLACTONE 25 MG TABLET 100 MG PO (08:37)
[2025-09-02] MEDS: PANTOPRAZOLE 40 MG TABLET PO (08:38)
[2025-09-02] MEDS: DIVALPROEX SOD EC 125 MG TABEC 250 MG PO (08:38)
[2025-09-02] MEDS: METOPROLOL SUCCINATE XL 25 MG TABCR 50 MG PO (08:38)
--- NOTE | 2025-09-02 08:57 | PC.NURSE ---
Pt came out of room requesting ice cream, was informed we will get them one. Before I entered the room with the ice cream, I could hear the pt yelling hurry up!! . When I went into the room and gave the pt the ice cream, I noticed pt was overly active, having a hard time sitting still, ate the ice cream very fast and then stood up and was somewhat pacing. Pt stated they were in all over generalized pain, I informed them that I could give them actaminophen in about an hour. Pt asked why in an hour and I explained it was due to how frequently I can safely give it, nothing was said after the explanation. Pt removed right before start of shift. I asked if I could place another one, and pt said not right now . Informed charge nurse.
--- NOTE | 2025-09-02 08:57 | PD.RESPRO ---
Documentation for date of: 09/02/25 Exam Vital Signs Temp Pulse Resp BP Pulse Ox O2 Del Method O2 Flow Rate 97 F 92 18 110/79 96 Room Air 2 09/02/25 08:00 09/02/25 08:38 09/02/25 08:00 09/02/25 08:38 09/02/25 08:00 09/02/25 08:00 09/01/25 21:42 Objective Labs 09/01/25 05:15 09/01/25 05:15 Labs: Laboratory Results - last 24 hr 09/01/25 09/01/25 05:15 13:00 Lactate Dehydrogenase 229 Pleural Color Yellow Pleural Appearance Hazy Pleural WBC 193 Pleural RBC 1000 Pleural Polynuclear WBC 11 Pleural Mononuclear WBC 89 Pleural Total Protein 2.9 Pleural LDH 80 Pleural Glucose 140 Pleural Amylase 30 Quality Measures Quality Measures VTE prophylaxis Assessment & Plan Assessment Current Active Medications: Generic Name Dose Route Start Last Admin Trade Name Freq PRN Reason Stop Dose Admin Acetaminophen 650 mg 08/30/25 19:55 09/02/25 03:59 Acetaminophen 325 Mg Tablet PO 09/29/25 19:54 650 mg Q6H PRN Administration Fever >101.5 or pain 1-3 Divalproex Sodium 250 mg 09/01/25 11:45 09/02/25 08:38 Divalproex Sod Ec 125 Mg Tabec PO 10/01/25 11:44 250 mg BID GISSEL Administration Losartan Potassium 25 mg 08/31/25 09:00 08/31/25 09:10 Losartan Potassium 25 Mg Tablet PO 09/30/25 08:59 25 mg On Hold: 08/31/25 14:39 QDAY GISSEL Administration Magnesium Oxide 400 mg 08/31/25 12:00 09/01/25 16:42 Magnesium Oxide 400 Mg Tablet PO 09/30/25 11:59 Not Given TIDWM GISSEL Metolazone 5 mg 08/31/25 09:00 09/02/25 08:37 Metolazone 2.5 Mg Tablet PO 09/30/25 08:59 5 mg QDAY GISSEL Administration Metoprolol Succinate 50 mg 08/31/25 09:00 09/02/25 08:38 Metoprolol Succinate Xl 25 Mg Tabcr PO 09/30/25 08:59 50 mg QDAY GISSEL Administration Midodrine 15 mg 08/31/25 22:00 09/02/25 05:55 Midodrine 5 Mg Tablet PO 09/30/25 21:59 Not Given TID GISSEL Ondansetron HCl 4 mg 08/30/25 19:55 Ondansetron Inj 2 Mg/Ml Inj 2 Ml IVP 09/29/25 19:54 Q6H PRN NAUSEA OR VOMITING Protocol Pantoprazole Sodium 40 mg 08/31/25 09:00 09/02/25 08:38 Pantoprazole 40 Mg Tablet PO 09/30/25 08:59 40 mg QDAY GISSEL Administration Spironolactone 100 mg 09/01/25 11:45 09/02/25 08:37 Spironolactone 25 Mg Tablet PO 10/01/25 11:44 100 mg QDAY GISSEL Administration Trazodone HCl 50 mg 08/30/25 21:00 09/01/25 21:36 Trazodone Hcl 50 Mg Tablet PO 09/29/25 20:59 50 mg HS GISSEL Administration
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
[2025-09-02 11:31] LABS: Basophils # (Auto) 0.1 Thou/mm3 (0.0-0.2); Basophils % (Auto) 1 % (0-2.5); Eosinophils # (Auto) 0.3 Thou/mm3 (0.0-0.5); Eosinophils % (Auto) 4 % (0-10); Hematocrit 37.5 % (41.0-53.0); Hemoglobin 12.0 g/dL (13.5-16.0); Immature Granulocytes Auto 0.03 Thou/mm3 (0.00-0.00); Lymphocytes # (Auto) 0.7 Thou/mm3 (1.0-4.8); Lymphocytes % (Auto) 11 % (10-50); Mean Corpuscular HGB Conc 32.0 g/dl (31.0-37.0); Mean Corpuscular Hemoglobin 27.8 pg (25.0-35.0); Mean Corpuscular Volume 87 fL (80-100); Monocytes # (Auto) 0.7 Thou/mm3 (0.0-0.8); Monocytes % (Auto) 11 % (0-12); Neutrophils # (Auto) 4.8 Thou/mm3 (1.8-7.7); Neutrophils % (Auto) 73 % (37-80); Nucleated Red Blood Cell # 0.00 Thou/mm3 (0.00-0.00); Nucleated Red Blood Cell % 0 /100 WBC (0); Platelet Count 193 Thou/mm3 (140-440); RDW Standard Deviation 57.0 fL (35.1-43.9); Red Blood Count 4.31 Miln/mm3 (4.50-5.90); White Blood Count 6.6 Thou/mm3 (3.8-10.6)
[2025-09-02 12:15] LABS: Alanine Aminotransferase 27 U/L (10-49); Albumin, Serum 3.8 gm/dL (3.5-5.0); Albumin/Globulin Ratio 1.1 (1.2-2.2); Alkaline Phosphatase 185 U/L (46-116); Anion Gap 12 (7-16); Aspartate Amino Transferase 29 U/L (0-34); BUN/Creatinine Ratio 27 Ratio (12-20); Bilirubin,Total 1.2 mg/dL (0.3-1.2); Blood Urea Nitrogen 19 mg/dL (9-23); Calcium 8.7 mg/dL (8.3-10.6); Calcium (Corrected) 8.9 mg/dL (8.5-10.1); Carbon Dioxide 24.3 mMol/L (20.0-31.0); Chloride 100 mMol/L (98-107); Creatinine (Component) 0.7 mg/dL (0.6-1.3); Globulin 3.5 gm/dL (2.3-3.5); Glucose 102 mg/dL (74-106); Magnesium 1.9 mg/dL (1.6-2.6); Osmolality,Calculated 274 (275-295); Phosphorous 3.6 mg/dL (2.4-5.1); Potassium 5.1 mMol/L (3.4-5.1); Sodium 136 mMol/L (136-145); Total Protein 7.3 gm/dL (5.7-8.2); eGFR > 60 See Note
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
--- NOTE | 2025-09-02 13:07 | PC.SS ---
Addendum entered by Brittany Andrew 09/02/25 14:59: Per bedside nurseCindy pt does not require home O2. SS and Luda GALO met with pt and he was not utilizing O2 at bedside. SS offered d/c options to [facility] in [place] or [place] and pt refused stating he parker not have anywhere to go. SS offered pt transportation and pt refused. SS offered pt a bus pass and pt refused and stated he already had anil passes. Pt became extremely hostile and verbally aggressive. Bedside nurse is aware. SS provided bedside nurse with sack lunch while pt was at the nurses station dressed appropriately (pants, shoes, and shirt) and without O2. Original Note: SS was informed by resident physician pt will d/c today. SS and Jasmyne RM met with pt. Pt is aware is being d/c today. Pt states he has no where to go. SS has offered d/c options to [facility] and is aware they open the doors in the evening around 8pm and has to complaint evaluation supervisor line (first come first served). Pt states he is requiring O2. SS has informed pt his O2 is not currently on. Pt state he still feels sick. Pt is aware bedside nurse will do an O2 test. SS met with bedside nurseCuca who is aware. Pt is aware to provide location where to be d/c to if he refuses the [facility].
== END 2025-09-02 20:16 | disposition home or self-care (01) | DRG 194 ==
LOC: SERX 19:21 → SERHOLD 20:47 → S3NX 21:43 → S3SX 09-01 13:58
PROVIDERS: Registered Nurse General Practice; Admitting Provider Internal Medicine; Emergency Provider Family Medicine; Visit Provider Student in an Organized Health Care Education/Training Program
DX: I11.0 Hypertensive heart disease with heart failure (principal); I50.23 Acute on chronic systolic (congestive) heart failure; I25.10 Atherosclerotic heart disease of native coronary artery without angina pectoris; Z95.1 Presence of aortocoronary bypass graft; J45.909 Unspecified asthma, uncomplicated; J94.0 Chylous effusion; J96.01 Acute respiratory failure with hypoxia; I25.5 Ischemic cardiomyopathy; F31.9 Bipolar disorder, unspecified; Z91.148 Patient's other noncompliance with medication regimen for other reason; R16.0 Hepatomegaly, not elsewhere classified; K74.60 Unspecified cirrhosis of liver; E11.9 Type 2 diabetes mellitus without complications; Z79.84 Long term (current) use of oral hypoglycemic drugs; N30.90 Cystitis, unspecified without hematuria; J91.8 Pleural effusion in other conditions classified elsewhere; K70.31 Alcoholic cirrhosis of liver with ascites; Z53.20 Procedure and treatment not carried out because of patient's decision for unspecified reasons; Z79.02 Long term (current) use of antithrombotics/antiplatelets; Z79.82 Long term (current) use of aspirin; I35.8 Other nonrheumatic aortic valve disorders; Z79.899 Other long term (current) drug therapy
CPT/HCPCS: 36415; 71045; 80053; 80307; 81001; 82150; 82945; 83615; 83735; 83880; 84100; 84157; 84484; 85025; 85610; 85730; 87070; 87075; 87081; 87205; 89051; 93005; 93225; 99283; C1729; J3475; J3490; A9270